=== PATIENT | female | born 1930 | race Caucasian/White ===

== ENCOUNTER → 2016-05-11 | Outpatient (CLI) | payer MEDICARE ==
[~2016-05-11] MED LIST: ARIC23TA PO; CARV12.5 PO; COUM5TAB PO; CYAN100025 PO; ENOX100P SQ; FERR1TAB36 PO; KEPP10002 PO; LEVE500 PO; LEVO-86 PO; LEVO.125 PO; MULT1TAB84 PO; NAME10TA PO; OMEGCAP PO; PROT40TA PO; PYRI1TAB14 PO; PYRI1TAB5 PO; REME15TA PO; STAR120T PO; VALS1TAB65 PO; VITA10003 PO; ZOCO10TA PO; ZOCO20TA PO
[2016-05-11 13:15] LABS: INTERNATIONAL NORMALIZED RATIO 1.3 RATIO; PROTHROMBIN TIME - PATIENT 14.5 SEC (9.8-11.6)
== END ==
LOC: PLAB 11:51
PROVIDERS: ATTEND Family Medicine
DX: I82.401 Acute embolism and thrombosis of unspecified deep veins of right lower extremity (principal)
CPT/HCPCS: 36415; 85610

== ENCOUNTER → 2016-05-27 | Outpatient (CLI) | payer MEDICARE ==
[2016-05-27 10:50] LABS: INTERNATIONAL NORMALIZED RATIO 1.3 RATIO; PROTHROMBIN TIME - PATIENT 14.1 SEC (9.8-11.6)
[2016-05-27 12:38] LABS: AUTOMATED NEUTROPHIL # 3.5 TH/MM3 (1.8-7.7); BASOPHIL # 0.1 TH/MM3 (0-0.2); BASOPHIL % 1.5 % (0.0-2.0); EOSINOPHIL # 0.7 TH/MM3 (0-0.4); EOSINOPHIL % 9.7 % (0.0-4.0); HEMATOCRIT 33.5 % (35.0-46.0); HEMO FLAGS DIFF FINAL; LYMPH % 33.9 % (9.0-44.0); LYMPHOCYTE # 2.5 TH/MM3 (1.0-4.8); MEAN CELL VOLUME 81.7 FL (80.0-100.0); MEAN CORPUSCULAR HGB CONC 31.8 % (32.0-36.0); MONO % 8.7 % (0.0-8.0); NEUT % 46.2 % (16.0-70.0); PLATELET COUNT 247 TH/MM3 (150-450); RED CELL DISTRIBUTION WIDTH 23.7 % (11.6-17.2); WHITE BLOOD COUNT 7.5 TH/MM3 (4.0-11.0)
[2016-05-27 13:12] LABS: ALKALINE PHOSPHATASE 48 U/L (45-117); ALT (GPT) 25 U/L (10-53); ANION GAP 7 MEQ/L (5-15); AST (GOT) 17 U/L (15-37); BICARBONATE 27.1 MEQ/L (21.0-32.0); BLOOD UREA NITROGEN 16 MG/DL (7-18); CHLORIDE 110 MEQ/L (98-107); FERRITIN 44 NG/ML (8-252); GLOMERULAR FILTRATION RATE 63 ML/MIN (>89); GLUCOSE,FASTING 135 MG/DL (74-99); SODIUM (NA) 144 MEQ/L (136-145); TOTAL BILIRUBIN ADULT 0.2 MG/DL (0.2-1.0); TRANSFERRIN IRON PROFILE 258 MG/DL (200-360)
[2016-05-27 16:32] LABS: HEMOGLOBIN A1a 1.1 %; HEMOGLOBIN A1b 1.8 %; HEMOGLOBIN Ao 85.2 %; HEMOGLOBIN LA1C 2.1 %
== END ==
LOC: PLAB 09:07
PROVIDERS: ATTEND Family Medicine
DX: I82.401 Acute embolism and thrombosis of unspecified deep veins of right lower extremity (principal)
CPT/HCPCS: 36415; 80053; 82728; 83036; 83540; 83550; 84443; 85025; 85610

== ENCOUNTER → 2016-07-16 | Outpatient (CLI) | payer MEDICARE ==
[2016-07-16 11:13] LABS: INTERNATIONAL NORMALIZED RATIO 1.5 RATIO; PROTHROMBIN TIME - PATIENT 17.1 SEC (9.8-11.6)
[2016-07-16 13:38] LABS: AUTOMATED NEUTROPHIL # 3.8 TH/MM3 (1.8-7.7); BASOPHIL % 0.5 % (0.0-2.0); EOSINOPHIL # 0.5 TH/MM3 (0-0.4); EOSINOPHIL % 6.7 % (0.0-4.0); HEMATOCRIT 36.7 % (35.0-46.0); HEMO FLAGS DIFF FINAL; LYMPH % 35.5 % (9.0-44.0); LYMPHOCYTE # 2.8 TH/MM3 (1.0-4.8); MEAN CELL VOLUME 82.3 FL (80.0-100.0); MEAN CORPUSCULAR HEMOGLOBIN 26.8 PG (27.0-34.0); MEAN CORPUSCULAR HGB CONC 32.6 % (32.0-36.0); MONO % 8.8 % (0.0-8.0); NEUT % 48.5 % (16.0-70.0); PLATELET COUNT 203 TH/MM3 (150-450); RED BLOOD COUNT 4.46 MIL/MM3 (4.00-5.30); RED CELL DISTRIBUTION WIDTH 17.6 % (11.6-17.2); WHITE BLOOD COUNT 7.8 TH/MM3 (4.0-11.0)
[2016-07-16 14:13] LABS: ALKALINE PHOSPHATASE 57 U/L (45-117); ALT (GPT) 28 U/L (10-53); ANION GAP 7 MEQ/L (5-15); AST (GOT) 16 U/L (15-37); BICARBONATE 29.6 MEQ/L (21.0-32.0); BLOOD UREA NITROGEN 16 MG/DL (7-18); CHLORIDE 106 MEQ/L (98-107); FERRITIN 21 NG/ML (8-252); GLOMERULAR FILTRATION RATE 59 ML/MIN (>89); POTASSIUM 3.6 MEQ/L (3.5-5.1); SODIUM (NA) 143 MEQ/L (136-145); TOTAL BILIRUBIN ADULT 0.2 MG/DL (0.2-1.0); TRANSFERRIN IRON PROFILE 237 MG/DL (200-360)
== END ==
LOC: PLAB 10:21
PROVIDERS: ATTEND Family Medicine
DX: I10 Essential (primary) hypertension (principal); E03.9 Hypothyroidism, unspecified; D50.9 Iron deficiency anemia, unspecified; I82.409 Acute embolism and thrombosis of unspecified deep veins of unspecified lower extremity; Z79.899 Other long term (current) drug therapy
CPT/HCPCS: 36415; 80053; 82728; 83540; 83550; 84443; 85025; 85610

== ENCOUNTER → 2016-10-21 | Outpatient (CLI) | payer MEDICARE ==
[~2016-10-21] MED LIST changes: -ENOX100P SQ; -LEVO-86 PO; -PYRI1TAB5 PO
[2016-10-21 10:48] LABS: PROTHROMBIN TIME - PATIENT 11.1 SEC (9.8-11.6)
[2016-10-21 12:26] LABS: AUTOMATED NEUTROPHIL # 4.2 TH/MM3 (1.8-7.7); BASOPHIL # 0.1 TH/MM3 (0-0.2); BASOPHIL % 0.7 % (0.0-2.0); EOSINOPHIL # 0.7 TH/MM3 (0-0.4); EOSINOPHIL % 8.3 % (0.0-4.0); HEMATOCRIT 35.5 % (35.0-46.0); HEMO FLAGS DIFF FINAL; LYMPH % 30.8 % (9.0-44.0); LYMPHOCYTE # 2.5 TH/MM3 (1.0-4.8); MEAN CELL VOLUME 84.7 FL (80.0-100.0); MEAN CORPUSCULAR HEMOGLOBIN 28.7 PG (27.0-34.0); MEAN CORPUSCULAR HGB CONC 33.9 % (32.0-36.0); MONO % 9.8 % (0.0-8.0); NEUT % 50.4 % (16.0-70.0); PLATELET COUNT 237 TH/MM3 (150-450); RED CELL DISTRIBUTION WIDTH 14.8 % (11.6-17.2); WHITE BLOOD COUNT 8.3 TH/MM3 (4.0-11.0)
[2016-10-21 12:50] LABS: ANION GAP 8 MEQ/L (5-15); AST (GOT) 21 U/L (15-37); BICARBONATE 27.9 MEQ/L (21.0-32.0); BLOOD UREA NITROGEN 13 MG/DL (7-18); CHLORIDE 101 MEQ/L (98-107); GLOMERULAR FILTRATION RATE 63 ML/MIN (>89); GLUCOSE,FASTING 146 MG/DL (74-99); POTASSIUM 3.9 MEQ/L (3.5-5.1); SODIUM (NA) 137 MEQ/L (136-145)
[2016-10-21 12:59] LABS: ALKALINE PHOSPHATASE 59 U/L (45-117); ALT (GPT) 31 U/L (10-53); FERRITIN 53 NG/ML (8-252); HDL CHOLESTEROL 57.7 MG/DL (40.0-60.0); LDL CHOLESTEROL 78 MG/DL (0-99); TOTAL BILIRUBIN ADULT 0.3 MG/DL (0.2-1.0); TRANSFERRIN IRON PROFILE 239 MG/DL (200-360)
[2016-10-21 16:43] LABS: HEMOGLOBIN A1a 1.2 %; HEMOGLOBIN A1b 2.2 %; HEMOGLOBIN Ao 82.1 %; HEMOGLOBIN LA1C 2.2 %; HEMOGLOBIN P3 4.1 %
== END ==
LOC: PLAB 09:23
PROVIDERS: ATTEND Family Medicine
DX: E78.2 Mixed hyperlipidemia (principal); E03.9 Hypothyroidism, unspecified; I10 Essential (primary) hypertension; E11.9 Type 2 diabetes mellitus without complications; I82.409 Acute embolism and thrombosis of unspecified deep veins of unspecified lower extremity; Z79.899 Other long term (current) drug therapy
CPT/HCPCS: 36415; 80053; 80061; 82728; 83036; 83540; 83550; 84443; 85025; 85610

== ENCOUNTER → 2016-12-16 | Outpatient (CLI) | payer MEDICARE ==
[2016-12-16 13:01] LABS: AUTOMATED NEUTROPHIL # 4.4 TH/MM3 (1.8-7.7); BASOPHIL % 0.5 % (0.0-2.0); EOSINOPHIL # 0.8 TH/MM3 (0-0.4); EOSINOPHIL % 8.7 % (0.0-4.0); HEMATOCRIT 39.7 % (35.0-46.0); HEMO FLAGS DIFF FINAL; LYMPH % 33.3 % (9.0-44.0); MEAN CELL VOLUME 84.8 FL (80.0-100.0); MEAN CORPUSCULAR HEMOGLOBIN 28.7 PG (27.0-34.0); MEAN CORPUSCULAR HGB CONC 33.9 % (32.0-36.0); MONO % 8.2 % (0.0-8.0); NEUT % 49.3 % (16.0-70.0); PLATELET COUNT 211 TH/MM3 (150-450); RED BLOOD COUNT 4.69 MIL/MM3 (4.00-5.30); RED CELL DISTRIBUTION WIDTH 13.5 % (11.6-17.2); WHITE BLOOD COUNT 8.9 TH/MM3 (4.0-11.0)
[2016-12-16 13:36] LABS: FERRITIN 19 NG/ML (8-252); TRANSFERRIN IRON PROFILE 230 MG/DL (200-360)
[2016-12-16 16:55] LABS: HEMOGLOBIN A1a 1.2 %; HEMOGLOBIN A1b 2.4 %; HEMOGLOBIN Ao 81.1 %; HEMOGLOBIN LA1C 2.3 %; HEMOGLOBIN P3 4.3 %
== END ==
LOC: PLAB 08:39
PROVIDERS: ATTEND Family Medicine
DX: E03.9 Hypothyroidism, unspecified (principal); E11.65 Type 2 diabetes mellitus with hyperglycemia; D50.9 Iron deficiency anemia, unspecified
CPT/HCPCS: 36415; 82728; 83036; 83540; 83550; 84443; 85025

== ENCOUNTER → 2017-02-24 | Outpatient (CLI) | payer MEDICARE | LOC: PLAB 11:30 | PROVIDERS: ATTEND Family Medicine | DX: E03.9 Hypothyroidism, unspecified (principal) | CPT/HCPCS: 36415; 84443 ==

== ENCOUNTER → 2017-03-28 | Outpatient (CLI) | payer MEDICARE ==
[~2017-03-28] MED LIST changes: -PYRI1TAB14 PO; +PYRI50 PO
[2017-03-28 13:37] LABS: AUTOMATED NEUTROPHIL # 4.2 TH/MM3 (1.8-7.7); BASOPHIL # 0.1 TH/MM3 (0-0.2); BASOPHIL % 0.8 % (0.0-2.0); EOSINOPHIL # 0.7 TH/MM3 (0-0.4); EOSINOPHIL % 7.1 % (0.0-4.0); HEMATOCRIT 39.5 % (35.0-46.0); HEMO FLAGS DIFF FINAL; LYMPH % 37.9 % (9.0-44.0); LYMPHOCYTE # 3.6 TH/MM3 (1.0-4.8); MEAN CORPUSCULAR HEMOGLOBIN 27.1 PG (27.0-34.0); MEAN CORPUSCULAR HGB CONC 32.6 % (32.0-36.0); MONO % 9.5 % (0.0-8.0); NEUT % 44.7 % (16.0-70.0); PLATELET COUNT 226 TH/MM3 (150-450); RED BLOOD COUNT 4.76 MIL/MM3 (4.00-5.30); RED CELL DISTRIBUTION WIDTH 14.8 % (11.6-17.2); WHITE BLOOD COUNT 9.4 TH/MM3 (4.0-11.0)
[2017-03-28 14:04] LABS: ANION GAP 8 MEQ/L (5-15); AST (GOT) 21 U/L (15-37); BLOOD UREA NITROGEN 19 MG/DL (7-18); CHLORIDE 107 MEQ/L (98-107); GLOMERULAR FILTRATION RATE 57 ML/MIN (>89); GLUCOSE,FASTING 180 MG/DL (74-99); POTASSIUM 3.7 MEQ/L (3.5-5.1); SODIUM (NA) 141 MEQ/L (136-145)
[2017-03-28 14:15] LABS: ALKALINE PHOSPHATASE 70 U/L (45-117); ALT (GPT) 34 U/L (10-53); FERRITIN 14 NG/ML (8-252); LDL CHOLESTEROL 57 MG/DL (0-99); TOTAL BILIRUBIN ADULT 0.3 MG/DL (0.2-1.0); TRANSFERRIN IRON PROFILE 256 MG/DL (200-360)
[2017-03-28 17:18] LABS: HEMOGLOBIN A1a 1.3 %; HEMOGLOBIN A1b 1.2 %; HEMOGLOBIN Ao 79.6 %; HEMOGLOBIN F 1.4 %; HEMOGLOBIN LA1C 2.8 %; HEMOGLOBIN P3 4.7 %
== END ==
LOC: PLAB 08:37
PROVIDERS: ATTEND Family Medicine
DX: E11.65 Type 2 diabetes mellitus with hyperglycemia (principal); I10 Essential (primary) hypertension; E78.2 Mixed hyperlipidemia; E03.9 Hypothyroidism, unspecified; D50.9 Iron deficiency anemia, unspecified
CPT/HCPCS: 36415; 80053; 80061; 82728; 83036; 83540; 83550; 84443; 85025

== ENCOUNTER → 2017-09-13 | Outpatient (CLI) | payer MEDICARE ==
[~2017-09-13] MED LIST changes: -FERR1TAB36 PO; -MULT1TAB84 PO; -VITA10003 PO
[2017-09-13 10:42] LABS: AUTOMATED NEUTROPHIL # 3.7 TH/MM3 (1.8-7.7); BASOPHIL % 0.4 % (0.0-2.0); EOSINOPHIL # 0.7 TH/MM3 (0-0.4); EOSINOPHIL % 8.7 % (0.0-4.0); HEMATOCRIT 38.1 % (35.0-46.0); HEMOGLOBIN 13.1 GM/DL (11.6-15.3); LYMPHOCYTE # 3.1 TH/MM3 (1.0-4.8); MEAN CELL VOLUME 84.9 FL (80.0-100.0); MEAN CORPUSCULAR HEMOGLOBIN 29.2 PG (27.0-34.0); MEAN CORPUSCULAR HGB CONC 34.3 % (32.0-36.0); MEAN PLATELET VOLUME 8.1 FL (7.0-11.0); MONO % 9.4 % (0.0-8.0); MONOCYTE # 0.8 TH/MM3 (0-0.9); NEUT % 44.5 % (16.0-70.0); PLATELET COUNT 217 TH/MM3 (150-450); RED BLOOD COUNT 4.49 MIL/MM3 (4.00-5.30); RED CELL DISTRIBUTION WIDTH 15.1 % (11.6-17.2); RETIC # 50.8 MIL/L (20.0-150.0); RETIC % 1.1 % (0.4-3.0); WHITE BLOOD COUNT 8.3 TH/MM3 (4.0-11.0)
[2017-09-13 11:02] LABS: ALBUMIN 3.5 GM/DL (3.4-5.0); AST (GOT) 20 U/L (15-37); BLOOD UREA NITROGEN 12 MG/DL (7-18); CALCIUM 8.7 MG/DL (8.5-10.1); CHLORIDE 105 MEQ/L (98-107); CREATININE 0.87 MG/DL (0.50-1.00); GLOMERULAR FILTRATION RATE 62 ML/MIN (>89); GLUCOSE,FASTING 108 MG/DL (74-99); SODIUM (NA) 141 MEQ/L (136-145)
[2017-09-13 11:13] LABS: % SATURATION IRON PROFILE 22.6 % (20-50); ALKALINE PHOSPHATASE 59 U/L (45-117); ALT (GPT) 27 U/L (10-53); FERRITIN 54 NG/ML (8-252); IRON (FE) 75 MCG/DL (50-170); TOTAL BILIRUBIN ADULT 0.3 MG/DL (0.2-1.0); TOTAL IRON BINDING CAPACITY 332 MCG/DL (250-450); TOTAL PROTEIN 7.2 GM/DL (6.4-8.2)
[2017-09-13 16:17] LABS: HEMOGLOBIN A1C 7.5 % (4.3-6.0)
== END ==
LOC: PLAB 08:23
PROVIDERS: ATTEND Family Medicine
DX: E11.65 Type 2 diabetes mellitus with hyperglycemia (principal); E03.9 Hypothyroidism, unspecified; D50.9 Iron deficiency anemia, unspecified
CPT/HCPCS: 36415; 80053; 82728; 83036; 83540; 83550; 84443; 85025; 85044

== ENCOUNTER 2017-10-25 00:43 | Inpatient (IN) | payer MEDICARE ==
[~2017-10-25] VITALS: Ht 167.6 cm; Wt 81.1 kg
[2017-10-25] VITALS (11 sets, daily range): BP systolic 134–180; BP diastolic 60–80; PULSE 68–101; RESP 18–20; TEMP 96.1–97.4; O2SAT 94–97
[2017-10-25] MEDS ORDERED: VALS1TAB65 PO (01:20)
[2017-10-25] MEDS ORDERED: CARV12.5 PO (01:20)
[2017-10-25] MEDS ORDERED: REME15TA PO (01:20)
[2017-10-25] MEDS ORDERED: SITA1TAB2 PO (01:20)
[2017-10-25] MEDS ORDERED: ARIC23TA PO (01:20)
[2017-10-25] MEDS ORDERED: LEVE500 (01:20)
[2017-10-25] MEDS ORDERED: LEVO.15 PO (01:20)
[2017-10-25] MEDS ORDERED: PANT40TA3 PO (01:20)
[2017-10-25] MEDS ORDERED: METHE500 PO (01:20)
[2017-10-25] MEDS ORDERED: ASPI-516 CHEW (01:20)
[2017-10-25] MEDS ORDERED: SIMV20TA PO (01:20)
[2017-10-25] MEDS ORDERED: NAME10TA PO (01:20)
[2017-10-25] MEDS ORDERED: SODIUM CHLORIDE 0.9% FLUSH 10 ML FLUSH IVF PRN (01:30)
--- NOTE | 2017-10-25 01:54 | PD ---
HPI Chief Complaint: GI Complaint Time Seen by Provider: 01:29 Travel History International Travel<30 days: No Contact w/Intl Traveler<30days: No Traveled to known affect area: No History of Present Illness HPI 87-year-old female presents to the emergency department by private transportation for evaluation of nausea vomiting and diarrhea. Symptoms began after eating dinner. Upon arrival to the emergency department symptoms are now completely resolved. Patient had multiple episodes of nonbloody nonbilious emesis with watery diarrhea. Patient reportedly ate the same foods as her spouse but he is not asymptomatic no known dietary indiscretion well water ingestion or foreign travel. At this time patient states he feels completely back to normal she has no nausea she has had no further vomiting she has no crampy abdominal pain and she has had no watery diarrhea since arrival to the emergency department. Patient states she feels well denies having any chest pain palpitations shortness of breath sweats diaphoresis no syncope or syncope. Daughter states that when symptoms began this evening she had numerous episodes of stomach contents and watery emesis as well as watery diarrhea. No hematemesis no coffee-ground emesis no melena hematochezia no recent antibiotic use. Symptoms seem to have completely resolved at this time the daughter was quite concerned about patient becoming dehydrated. Patient and family unable to identify specific exacerbating or alleviating factors. 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 Patient also has history of pacemaker defibrillator denies any chest pain shortness of breath. PFSH Past Medical History Narrative Medical Atrial fibrillation dyslipidemia CAD CVA subarachnoid hemorrhage diabetes DVT pacemaker hypothyroidism seizure memory loss; no tobacco use; nursing notes reviewed Hx Anticoagulant Therapy: No Asthma: No Atrial Fibrillation: Yes Autoimmune Disease: No Blood Disorders: No Anxiety: No Depression: Yes Heart Rhythm Problems: Yes (A-FIB) Cancer: No Cardiovascular Problems: Yes High Cholesterol: Yes Chemotherapy: No Chest Pain: No Congestive Heart Failure: No COPD: No Cerebrovascular Accident: Yes ([facility] POST NEURO SURGERY 06/17) Diabetes: Yes Patient Takes Glucophage: No Diminished Hearing: No Deep Vein Thrombosis: Yes Gastrointestinal Disorders: No GERD: No Glaucoma: No Genitourinary: No Headaches: No Hepatitis: No Hiatal Hernia: No Heparin Induced Thrombocytopen: No Hypertension: Yes Immune Disorder: No Kidney Stones: No 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) Psychiatric: Yes Reproductive: No Respiratory: No Migraines: No Myocardial Infarction: No Radiation Therapy: No Renal Failure: No Sickle Cell Disease: No Sleep Apnea: No Thyroid Disease: Yes Ulcer: No Tetanus Vaccination: < 5 Years Influenza Vaccination: Yes Menopausal: Yes Past Surgical History Abdominal Surgery: Yes (MULTIPLE) AICD: Yes Appendectomy: No Arteriovenous Shunt: No Cardiac Surgery: No Cholecystectomy: No Ear Surgery: No Endocrine Surgery: No Eye Surgery: No Genitourinary Surgery: No Gynecologic Surgery: Yes (HYSTERECTOMY) Hysterectomy: Yes Insulin Pump: No Joint Replacement: No Neurologic Surgery: Yes (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) Oral Surgery: No Pacemaker: Yes (PACING AICD) Thoracic Surgery: No Other Surgery: Yes Social History Alcohol Use: No Tobacco Use: No Substance Use: No Allergies-Medications (Allergen,Severity, Reaction): Coded Allergies: diatrizoate meglumine (Verified Allergy, Intermediate, 10/25/17) gadobenic acid (Verified Allergy, Intermediate, 10/25/17) gadodiamide (Verified Allergy, Intermediate, 10/25/17) gadoteridol (Verified Allergy, Intermediate, 10/25/17) iodixanol (Verified Allergy, Intermediate, 10/25/17) iohexol (Verified Allergy, Intermediate, 10/25/17) penicillin G (Verified Allergy, Intermediate, 10/25/17) Reported Meds & Prescriptions Reported Meds & Active Scripts Active Reported Valsartan 160 Mg Tab 160 Mg PO DAILY Synthroid (Levothyroxine Sodium) 150 Mcg Tab 150 Mcg PO DAILY Simvastatin 20 Mg Tab 20 Mg PO DAILY Remeron (Mirtazapine) 15 Mg Tab 7.5 Mg PO HS Pantoprazole (Pantoprazole Sodium) 40 Mg Tab 40 Mg PO DAILY Namenda (Memantine) 10 Mg Tab 10 Mg PO DAILY Methenamine Mandelate 500 Mg Tab 500 Mg PO QID Keppra (Levetiracetam) 500 Mg Tab 500 Mg BID Januvia (Sitagliptin Phosphate) 100 Mg Tab 100 Mg PO DAILY Coreg (Carvedilol) 12.5 Mg Tab 12.5 Mg PO BID Aspirin 81 Mg Chew 162 Mg CHEW DAILY Aricept (Donepezil) 23 Mg Tab 10 Mg PO HS Do not split, crushed or chewed. Review of Systems Except as stated in HPI: all other systems reviewed are Neg General / Constitutional: No: Fever, Chills Eyes: No: Visual changes HENT: No: Congestion Cardiovascular: No: Chest Pain or Discomfort, Palpitations, Diaphoresis, Syncope Respiratory: No: Shortness of Breath Gastrointestinal: Positive: Nausea, Vomiting, Diarrhea, Abdominal Pain ( cramping w/ vomiting or diarrhea), No: Hematemesis, Hematochezia Genitourinary: No: Urgency, Frequency, Dysuria, Nocturia, Decreased Urinary Output Musculoskeletal: No: Myalgias, Arthralgias Skin: No Rash Neurologic: No: Weakness, Dizziness, Syncope Psychiatric: No: Anxiety Hematologic/Lymphatic: No: Easy Bruising Physical Exam Narrative GENERAL: Well-developed well-nourished elderly female in no acute distress or respiratory distress SKIN: Warm and dry. HEAD: Normocephalic. EYES: No scleral icterus. No injection or drainage. NECK: Supple, trachea midline. No JVD or lymphadenopathy. CARDIOVASCULAR: Regular rate and rhythm without murmurs, gallops, or rubs. RESPIRATORY: Breath sounds equal bilaterally. No accessory muscle use. GASTROINTESTINAL: Abdomen soft, non-tender, nondistended. No guarding no rebound no palpable pulsatile mass MUSCULOSKELETAL: No cyanosis, or edema. BACK: Nontender without obvious deformity. No CVA tenderness. Data Data Last Documented VS Vital Signs Date Time Temp Pulse Resp B/P (MAP) Pulse Ox O2 Delivery O2 Flow Rate FiO2 10/25/17 02:15 150/74 (99) 10/25/17 01:54 18 97 Room Air 10/25/17 00:49 97.4 101 Orders Orders Complete Blood Count With Diff (10/25/17 01:29) Comprehensive Metabolic Panel (10/25/17 01:29) Urinalysis - C+S If Indicated (10/25/17 01:29) Lipase (10/25/17 01:29) Abdomen, Flat & Upright (10/25/17 ) Iv Access Insert/Monitor (10/25/17 01:29) Ecg Monitoring (10/25/17 01:29) Oximetry (10/25/17 01:29) Sodium Chloride 0.9% Flush (Ns Flush) (10/25/17 01:30) Electrocardiogram (10/25/17 ) Urine Culture (10/25/17 01:44) Blood Culture (10/25/17 02:16) Lactic Acid (10/25/17 02:16) Sodium Chlorid 0.9% 500 Ml Inj (Ns 500 M (10/25/17 02:30) Ceftriaxone Inj (Rocephin Inj) (10/25/17 02:45) Admit Order (Ed Use Only) (10/25/17 ) Weather Clerk / Telemetry [id number] (10/25/17 03:20) Diet Heart Healthy (10/25/17 Breakfast) Activity Oob With Assistance (10/25/17 03:20) Notify Dr: Other (10/25/17 03:20) Labs Laboratory Tests Test 10/25/17 01:44 10/25/17 02:23 White Blood Count 15.9 TH/MM3 Red Blood Count 5.11 MIL/MM3 Hemoglobin 14.9 GM/DL Hematocrit 44.3 % Mean Corpuscular Volume 86.6 FL Mean Corpuscular Hemoglobin 29.1 PG Mean Corpuscular Hemoglobin Concent 33.7 % Red Cell Distribution Width 13.9 % Platelet Count 212 TH/MM3 Mean Platelet Volume 8.1 FL Neutrophils (%) (Auto) 78.0 % Lymphocytes (%) (Auto) 12.1 % Monocytes (%) (Auto) 4.8 % Eosinophils (%) (Auto) 3.0 % Basophils (%) (Auto) 2.1 % Neutrophils # (Auto) 12.4 TH/MM3 Lymphocytes # (Auto) 1.9 TH/MM3 Monocytes # (Auto) 0.8 TH/MM3 Eosinophils # (Auto) 0.5 TH/MM3 Basophils # (Auto) 0.3 TH/MM3 CBC Comment DIFF FINAL Differential Comment Urine Color YELLOW Urine Turbidity SL CLOUDY Urine pH 6.0 Urine Specific [place] 1.025 Urine Protein 100 mg/dL Urine Glucose (UA) 250 mg/dL Urine Ketones 15 mg/dL Urine Occult Blood SMALL Urine Nitrite POS Urine Bilirubin NEG Urine Urobilinogen 0.2 MG/DL Urine Leukocyte Esterase NEG Urine RBC 3-5 /hpf Urine WBC 3-5 /hpf Urine Squamous Epithelial Cells 0-5 /hpf Urine Bacteria MANY /hpf Microscopic Urinalysis Comment CULTURE INDICATED Blood Urea Nitrogen 14 MG/DL Creatinine 0.91 MG/DL Random Glucose 245 MG/DL Total Protein 7.6 GM/DL Albumin 3.5 GM/DL Calcium Level 8.7 MG/DL Alkaline Phosphatase 60 U/L Aspartate Amino Transf (AST/SGOT) 32 U/L Alanine Aminotransferase (ALT/SGPT) 32 U/L Total Bilirubin 0.4 MG/DL Sodium Level 135 MEQ/L Potassium Level 4.1 MEQ/L Chloride Level 101 MEQ/L Carbon Dioxide Level 23.5 MEQ/L Anion Gap 11 MEQ/L Estimat Glomerular Filtration Rate 59 ML/MIN Lipase 205 U/L Lactic Acid Level 2.5 mmol/L [facility] Medical Decision Making Medical Screen Exam Complete: Yes Emergency Medical Condition: Yes Medical Record Reviewed: Yes Interpretation(s) EKG: normal sinus rhythm rate 99, first degree av block left bundle branch block lactic acid: 2.5, elevated Last Impressions Abdomen X-Ray 10/25/17 0000 Signed Impressions: CONCLUSION: Negative examination. Pacemaker overlies the heart CBC & BMP Diagram 10/25/17 01:44 Total Protein 7.6, Albumin 3.5, Calcium Level 8.7, Alkaline Phosphatase 60, Aspartate Amino Transf (AST/SGOT) 32, Alanine Aminotransferase (ALT/SGPT) 32, Total Bilirubin 0.4 Vital Signs Date Time Temp Pulse Resp B/P (MAP) Pulse Ox O2 Delivery O2 Flow Rate FiO2 10/25/17 02:15 150/74 (99) 10/25/17 01:54 18 97 Room Air 10/25/17 01:10 18 10/25/17 00:49 97.4 101 20 179/80 (113) 95 Differential Diagnosis Gastroenteritis, electrolyte disturbance, arrhythmia, UTI, dehydration, sepsis, Sirs; also to consider but unlikely ischemic colitis Narrative Course IV access obtained specimens collected and sent for resulting patient placed on filters assembler with continuous pulse oximetry; patient resting comfortably denies any nausea at this time does not want any Zofran for nausea or vomiting denies any abdominal pain abdomen is soft nontender without guarding or rebound and no diarrhea. No recent antibiotic use. Possible foodborne illness. White cell count is elevated at 15,000 can reflect infectious versus hydration/ dehydration status versus stress demargination will administer fluid bolus 1 Chemistries grossly within normal range however abnormal urinalysis positive nitrites and many bacteria with recommendation for culture at this point time patient does meet sepsis criteria and with elevated white cell count elevated heart rate upon presentation and source of infection as such blood cultures obtained along with a lactic acid and patient administered Rocephin 1 g IV piggyback with IV fluid bolus Lactic acid has resulted elevated at 2.5 call placed to patient's primary care provider Dr. Munoz will admit patient to his service for ongoing antibiotic management; patient and family informed of plan for admission and are agreeable. Critical Care Narrative Aggregate critical care time was 35 minutes. Time to perform other separately billable procedures was not included in the critical care time. My time did not include minutes spent treating any other patients simultaneously or on activities that did not directly contribute to the patient's treatment. The services I provided to this patient were to treat and/or prevent clinically significant deterioration that could result in: Severe sepsis, septic shock, I provided critical care services requiring my management, as noted below: Chart data review, documentation time, medication orders and management, vital sign assessments/reviewing monitor data, ordering and reviewing lab tests, ordering and interpreting/reviewing x-rays and diagnostic studies, care of the patient and discussion of the patient with the admitting physicians. Sepsis Criteria SIRS Criteria (2 or more): Heart rate over 90, WBC > 02661, < 4000 or > 10% bands Physician Communication Physician Communication discussed with DR Munoz--admit to his service --will write orders Diagnosis Primary Impression: Sepsis Additional Impressions: UTI (urinary tract infection) Gastroenteritis Admitting Information Admitting Physician Requests: Admit Rima Briones MD Oct 25, 2017 01:54
[2017-10-25 02:00] LABS: BILIRUBIN, URINE NEG (NEG); BLOOD, URINE SMALL (NEG); GLUCOSE,URINE 250 mg/dL (NEG); KETONE, URINE 15 mg/dL (NEG); NITRITE,URINE POS (NEG); URINE COLOR YELLOW (YELLW/STRAW); URINE LEUKOCYTE ESTERASE NEG (NEG)
[2017-10-25 02:01] LABS: AUTOMATED NEUTROPHIL # 12.4 TH/MM3 (1.8-7.7); BASOPHIL # 0.3 TH/MM3 (0-0.2); BASOPHIL % 2.1 % (0.0-2.0); EOSINOPHIL # 0.5 TH/MM3 (0-0.4); HEMATOCRIT 44.3 % (35.0-46.0); HEMOGLOBIN 14.9 GM/DL (11.6-15.3); LYMPH % 12.1 % (9.0-44.0); LYMPHOCYTE # 1.9 TH/MM3 (1.0-4.8); MEAN CELL VOLUME 86.6 FL (80.0-100.0); MEAN CORPUSCULAR HEMOGLOBIN 29.1 PG (27.0-34.0); MEAN CORPUSCULAR HGB CONC 33.7 % (32.0-36.0); MEAN PLATELET VOLUME 8.1 FL (7.0-11.0); MONO % 4.8 % (0.0-8.0); MONOCYTE # 0.8 TH/MM3 (0-0.9); PLATELET COUNT 212 TH/MM3 (150-450); RED BLOOD COUNT 5.11 MIL/MM3 (4.00-5.30); RED CELL DISTRIBUTION WIDTH 13.9 % (11.6-17.2); WHITE BLOOD COUNT 15.9 TH/MM3 (4.0-11.0)
[2017-10-25 02:08] LABS: BACTERIA, URINE MANY /hpf; SQUAMOUS EPITHELIAL CELL URINE 0-5 /hpf (0-5)
[2017-10-25 02:09] LABS: CHLORIDE 101 MEQ/L (98-107); SODIUM (NA) 135 MEQ/L (136-145)
[2017-10-25 02:13] LABS: ALBUMIN 3.5 GM/DL (3.4-5.0); BICARBONATE 23.5 MEQ/L (21.0-32.0); BLOOD UREA NITROGEN 14 MG/DL (7-18); CALCIUM 8.7 MG/DL (8.5-10.1); GLUCOSE,RANDOM 245 MG/DL (74-106)
[2017-10-25 02:16] LABS: ALT (GPT) 32 U/L (10-53); AST (GOT) 32 U/L (15-37); CREATININE 0.91 MG/DL (0.50-1.00); GLOMERULAR FILTRATION RATE 59 ML/MIN (>89)
[2017-10-25 02:18] LABS: TOTAL BILIRUBIN ADULT 0.4 MG/DL (0.2-1.0); TOTAL PROTEIN 7.6 GM/DL (6.4-8.2)
[2017-10-25 02:19] LABS: ALKALINE PHOSPHATASE 60 U/L (45-117)
--- NOTE | 2017-10-25 02:26 | RADRPT ---
EXAM DATE: 10/25/2017 2:12 AM EDT AGE/SEX: 87 years / Female INDICATIONS: Abdomen pain, nausea, and vomiting. CLINICAL DATA: This is the patient's initial encounter. Patient reports that signs and symptoms have been present for 1 day and indicates a pain score of 7/10. MEDICAL/SURGICAL HISTORY: . No pertinent history. Hysterectomy. COMPARISON: No prior exams available for comparison. FINDINGS: Supine and upright views of the abdomen were performed. The abdominal bowel gas pattern is normal. No air-fluid levels are seen. No abnormal masses, calcifications, or organomegaly is seen. The visualiz ed lower lungs are clear. No evidence of free intraperitoneal gas. The osseous structures are unremar kable. IVC filter in place CONCLUSION: Negative examination. Pacemaker overlies the heart Electronically signed by: Alexander Cunha MD 10/25/2017 2:25 AM EDT
[2017-10-25] MEDS ORDERED: SODIUM CHLORID 0.9% 500 ML INJ 500 ML IV ONE (02:30)
[2017-10-25] MEDS ORDERED: cefTRIAXone INJ 1,000 MG in SODIUM CHLORIDE 0.9% INJ 100 ML IV ONE (02:45)
[2017-10-25] MEDS ORDERED: SODIUM CHLORIDE 0.9% FLUSH 10 ML FLUSH IV FLUSH PRN (03:30)
[2017-10-25] MEDS ORDERED: MAGNESIUM HYDROXIDE SUSP 30 ML CUP PO PRN (03:30)
[2017-10-25] MEDS ORDERED: NALOXONE HCL 0.4 MG/ML AMP IV PUSH PRN (03:30)
[2017-10-25] MEDS ORDERED: SENNOSIDES 8.6 MG TAB PO PRN (03:30)
[2017-10-25] MEDS ORDERED: ACETAMINOPHEN 325 MG TAB PO PRN (03:30)
[2017-10-25] MEDS ORDERED: BISACODYL 10 MG SUPP RECTAL PRN (03:30)
[2017-10-25] MEDS ORDERED: PILL SPLITTER OTHER PRN (03:45)
[2017-10-25] MEDS ORDERED: GLUCAGON 1 MG/ML VIAL OTHER PRN (03:45)
[2017-10-25] MEDS ORDERED: DEXTROSE 50% IN WATER 50 ML VIAL(D50) IV PUSH PRN (03:45)
[2017-10-25] MEDS ORDERED: ONDANSETRON ODT 4 MG TAB PO PRN (03:45)
[2017-10-25] MEDS: SODIUM CHLOR 0.45% 1000 ML INJ 1,000 ML IV SCH ×2 (03:53→16:24)
[2017-10-25] MEDS: LEVOTHYROXINE SODIUM 150 MCG TAB PO SCH (05:43)
[2017-10-25] MEDS: GLIMEPIRIDE 2 MG TAB PO SCH ×2 (05:43→09:50)
[2017-10-25] MEDS: INSULIN ASPART SUPPLEMENTAL SCALE SQ SCH ×4 (08:00→21:48)
[2017-10-25] MEDS: SODIUM CHLORIDE 0.9% FLUSH 10 ML FLUSH IV FLUSH SCH ×2 (09:00→21:43)
--- NOTE | 2017-10-25 09:33 | MH ---
cc: Mauricio Munoz MD DATE OF ADMISSION: 10/25/2017 ADMITTING DIAGNOSIS: Urinary tract infection, sepsis. HISTORY OF PRESENT ILLNESS: This 87-year-old white female, well known to the undersigned physician, was in her usual state of health until the evening prior to admission when she had sudden onset of nausea and vomiting. She had multiple episodes of emesis. She denied any abdominal pain, fever, chills, dysuria, hematuria, or flank pain. She does have chronic urinary incontinence, which was unchanged. The patient could not keep down solids and liquids at which point her family brought her to this facility for further evaluation and treatment. PAST MEDICAL HISTORY: Extensive, including a history of type 2 diabetes, hypertension, hyperlipidemia, hypothyroidism, peripheral vascular disease, history of a cerebral aneurysm with attempted coiling procedure, which caused a rupture of the aneurysm and an intracranial hemorrhage. The patient had a prolonged hospitalization, and recovery in 2003. 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 She has been on long-term anticonvulsant therapy. She has a history of frequent urinary tract infections, but they have not occurred in almost 2 years. She has a history of hemorrhoids. The patient is status post hysterectomy, status post pacemaker placement, status post bilateral cataract removal with lens implants. ALLERGIES: SHE HAS ALLERGIES TO PENICILLIN AND IV CONTRAST. FAMILY HISTORY: Noncontributory. SOCIAL HISTORY: She is . She is retired. She lives with her . She has a caregiver during the day. She does not smoke nor does she drink alcohol. IMMUNIZATION HISTORY: The patient had pneumococcal vaccination in 01/2006 and influenza vaccination on 02/06/2017. REVIEW OF SYSTEMS: The patient denies any chest pain, shortness of breath, palpitations, lightheadedness, dizziness. She has had no cough or sputum production. She denies any fever, chills, night sweats, unexplained weight loss, unexplained weight gain, heat or cold intolerance, alopecia, dry skin, brittle nails, rashes, diarrhea, constipation, melena, hematochezia, numbness or tingling in the hands or feet, visual changes or lateralizing neurologic deficit. She does have some short-term memory deficits and some mild cognitive deficits consistent with her dementia. She has had no depression or anxiety. CURRENT MEDICATIONS: 1. Januvia 100 mg daily. 2. Methenamine Mandelate 500 mg twice daily. 3. Actos 15 mg daily. 4. Pantoprazole 40 mg daily. 5. Ferrous sulfate 325 mg daily. 6. Glimepiride 2 mg twice daily. 7. Mirtazapine 7.5 mg at bedtime. 8. Synthroid 150 mcg 1 tablet daily except 1/2 tablet on Mondays and . 9. Simvastatin 10 mg daily. 10. D-Mannose 500 mg 1 capsule twice daily. 11. Valsartan 160 mg daily. 12. Carvedilol 12.5 mg 2 tablets in the morning and 1 tablet in the evening. 13. Keppra 500 mg 2 tablets in the morning, 1 tablet midday and 2 tablets at bedtime. 14. Donepezil 10 mg at bedtime. 15. Vitamin D 1000 international units daily. 16. Namenda 10 mg twice daily. 17. Vitamin C 1000 mg daily. 18. Vitamin B12 1000 mcg daily. 19. Citrucel 500 mg tablets 2 tablets twice a day with 8 ounces of liquid. PHYSICAL EXAMINATION: Upon arrival to the emergency department, patient's blood pressure was 179/80, heart rate 101, respirations 20, temperature 97.4 degrees Fahrenheit, oxygen saturation on room air was 95%. At the current time, blood pressure is 144/65 with a heart rate of 68, respirations 18, temperature 96.6 degrees Fahrenheit. GENERAL: This is an obese, elderly, white female lying in bed in no acute distress. HEENT: Pupils are equal, round, reactive to light. Extraocular wounds are intact. Sclerae are anicteric. Conjunctivae pink. Bilateral lens implants in place. Mouth and throat revealed moist mucous membranes with no erythema or exudates. Dentition is good. There is extensive bridge work in the upper dentition. NECK: Supple without lymphadenopathy, JVD, bruits or thyromegaly. CARDIOVASCULAR: Regular rate and rhythm without murmurs, rubs or gallops. LUNGS: Clear to auscultation without wheezing, rhonchi or rales. ABDOMEN: Obese, moderately distended, soft, nontender with active bowel sounds. No masses palpable. No HSM. No CVAT. GENITOURINARY AND RECTAL: Deferred. LOWER EXTREMITIES: Reveal no appreciable edema. No calf tenderness. No Homans sign. 2+ pulses. NEUROLOGIC: The patient is awake, alert, oriented to person, place, but not to time. Speech is intact. Cranial nerves intact. She has no lateralizing deficits. Mood, good. Affect, appropriate. LABORATORY DATA: The white blood cell count 15.9, hemoglobin 14.9, hematocrit 44.3, platelet count was 212,000. White blood count differential showed 78 polys, 12.1 lymphocytes, and 4.8 monocytes. The comprehensive metabolic profile was significant only for a glucose of 245. Lactic acid was elevated at 2.5. Urinalysis revealed a specific gravity 1.025, pH 6.0, 100 mg percent protein, 250 mg percent, 15 ketones, small occult blood, positive for nitrites, 3-5 RBCs, 3-5 WBCs, but many bacteria. Culture is pending. Blood cultures are pending. Abdominal x-ray revealed pacemaker overlying the heart otherwise negative examination. IMPRESSION AND PLAN: 1. This 87-year-old white female presented with nausea and vomiting. Urinalysis is suspicious for urinary tract infection. She meets criteria for sepsis based on the elevated lactic acid and the tachycardia. She has received IV fluids in the emergency department and her heart rate has come down. Repeat lactic acid done this morning was 2.0, which is within normal limits. She will be admitted to a medical/surgical floor with telemetry. She will be given IV fluids, IV Rocephin and will adjust antibiotic coverage pending results of the urine culture. The patient was placed on a clear liquid diet due to nausea and vomiting. We will advance diet as tolerated. Provide antiemetics as needed. 2. Hypertension. Continue the patient with usual antihypertensive medications. Cover with additional medication if needed. 3. History of type 2 diabetes. The patient will continue with the usual oral hypoglycemic agents. We will check bedside glucose before meals and at bedtime and cover with a sliding scale and NovoLog insulin as needed. 4. History of dementia. Continue with the donepezil and Namenda. Mental status is stable. 5. Hyperlipidemia. The patient will continue with statin therapy. 6. Hypothyroidism. Continue with current dosage of Synthroid. Patient is having TSH monitored on an outpatient basis. 7. History of gastroesophageal reflux disease. Continue with pantoprazole 40 mg daily. 8. Deep venous thrombosis prophylaxis. The patient will have sequential compression devices in the lower extremities. She has a history of an intracranial hemorrhage, therefore, will avoid anticoagulants at this point. We will mobilize the patient as soon as possible to reduce risk of DVT. Mauricio Munoz MD JREzio/BRYNN , 08:49 AM , 09:32 AM
[2017-10-25] MEDS: MEMANTINE HCL 10 MG TAB PO SCH (09:49)
[2017-10-25] MEDS: PANTOPRAZOLE SOD 40 MG DELAYED RELEASE TAB PO SCH (09:49)
[2017-10-25] MEDS: PIOGLITAZONE HCL 15 MG TAB PO SCH (09:49)
[2017-10-25] MEDS: PRAVASTATIN SOD 40 MG TAB PO SCH (09:49)
[2017-10-25] MEDS: FERROUS SULFATE 325 MG (65 MG ELEMENTAL IRON) TAB PO SCH (09:50)
[2017-10-25] MEDS: levETIRAcetam 500 MG TAB PO SCH ×3 (09:50→21:40)
[2017-10-25] MEDS: CARVEDILOL 12.5 MG TAB PO SCH ×2 (09:50→21:40)
[2017-10-25] MEDS: ASPIRIN 81 MG CHEW TAB CHEW SCH (09:50)
[2017-10-25] MEDS: VALSARTAN 40 MG TAB PO SCH (10:18)
--- NOTE | 2017-10-25 16:33 | EKG ---
Date Performed: 10/25/2017 Time Performed: 01:43:53 PTAGE: 87 years EKG: Sinus rhythm WITH FIRST DEGREE AV BLOCK LEFT BUNDLE BRANCH BLOCK ABNORMAL ECG when compared to prior EKG,patient now appears to be in dual chamber pacing at an increased rate PREVIOUS TRACING : 06/03/2009 02.22 DOCTOR: Mohinder Dickerson Interpretating Date/Time 10/25/2017 16:32:22
[2017-10-25] MEDS ORDERED: cefTRIAXone INJ 1,000 MG in SODIUM CHLORIDE 0.9% INJ 100 ML IV SCH (17:00)
[2017-10-25] MEDS ORDERED: DONEPEZIL HCL 5 MG TAB PO SCH (21:00)
[2017-10-25] MEDS ORDERED: MIRTAZAPINE 15 MG TAB PO SCH (21:00)
[2017-10-26] VITALS: BP 146/67; PULSE 83; RESP 20; TEMP 97.1; O2SAT 93
[2017-10-26 04:00] VITALS: BP 172/75; PULSE 81; RESP 20; TEMP 96; O2SAT 94
[2017-10-26] MEDS: LEVOTHYROXINE SODIUM 150 MCG TAB PO SCH (05:35)
[2017-10-26] MEDS: GLIMEPIRIDE 2 MG TAB PO SCH ×2 (05:35→16:25)
[2017-10-26 06:44] LABS: AUTOMATED NEUTROPHIL # 4.2 TH/MM3 (1.8-7.7); BASOPHIL % 0.5 % (0.0-2.0); EOSINOPHIL # 0.7 TH/MM3 (0-0.4); HEMATOCRIT 37.9 % (35.0-46.0); LYMPH % 36.4 % (9.0-44.0); LYMPHOCYTE # 3.2 TH/MM3 (1.0-4.8); MEAN CELL VOLUME 87.7 FL (80.0-100.0); MEAN CORPUSCULAR HEMOGLOBIN 28.6 PG (27.0-34.0); MEAN CORPUSCULAR HGB CONC 32.6 % (32.0-36.0); MEAN PLATELET VOLUME 8.2 FL (7.0-11.0); MONO % 8.3 % (0.0-8.0); MONOCYTE # 0.7 TH/MM3 (0-0.9); NEUT % 46.8 % (16.0-70.0); PLATELET COUNT 194 TH/MM3 (150-450); RED BLOOD COUNT 4.32 MIL/MM3 (4.00-5.30); RED CELL DISTRIBUTION WIDTH 13.9 % (11.6-17.2); WHITE BLOOD COUNT 8.8 TH/MM3 (4.0-11.0)
[2017-10-26 07:00] LABS: HEMOGLOBIN 12.4 GM/DL (11.6-15.3)
[2017-10-26 07:03] LABS: BICARBONATE 26.4 MEQ/L (21.0-32.0)
[2017-10-26 07:04] LABS: CALCIUM 8.3 MG/DL (8.5-10.1)
[2017-10-26 07:06] LABS: CREATININE 0.85 MG/DL (0.50-1.00)
[2017-10-26 07:15] VITALS: PULSE 74
[2017-10-26] MEDS: INSULIN ASPART SUPPLEMENTAL SCALE SQ SCH ×3 (07:37→16:29)
[2017-10-26 08:00] VITALS: BP 166/83; PULSE 76; RESP 17; TEMP 96.7; O2SAT 95
[2017-10-26] MEDS: PIOGLITAZONE HCL 15 MG TAB PO SCH (08:06)
[2017-10-26] MEDS: SODIUM CHLOR 0.45% 1000 ML INJ 1,000 ML IV SCH (08:07)
[2017-10-26] MEDS: ASPIRIN 81 MG CHEW TAB CHEW SCH (08:09)
[2017-10-26] MEDS: VALSARTAN 40 MG TAB PO SCH (08:10)
[2017-10-26] MEDS: SODIUM CHLORIDE 0.9% FLUSH 10 ML FLUSH IV FLUSH SCH (08:10)
[2017-10-26] MEDS: CARVEDILOL 12.5 MG TAB PO SCH (08:10)
[2017-10-26] MEDS: FERROUS SULFATE 325 MG (65 MG ELEMENTAL IRON) TAB PO SCH (08:11)
[2017-10-26] MEDS: MEMANTINE HCL 10 MG TAB PO SCH (08:11)
[2017-10-26] MEDS: PRAVASTATIN SOD 40 MG TAB PO SCH (08:11)
[2017-10-26] MEDS: PANTOPRAZOLE SOD 40 MG DELAYED RELEASE TAB PO SCH (08:11)
[2017-10-26] MEDS: levETIRAcetam 500 MG TAB PO SCH ×2 (08:11→11:43)
--- NOTE | 2017-10-26 08:48 | HHI.PR ---
Subjective Remarks Patient denies any nausea or vomiting. She has had no abdominal pain or dysuria. Urine output is good. She has been afebrile. Bowels have moved twice since admission. Blood pressure was higher this morning. Denies any headache. Eating well. Current Medications Medications (Trade) Dose Ordered Sig/Shirley Route Start Time Stop Time Status Last Admin (NS Flush) 2 ml UNSCH PRN IVF 10/25/17 01:30 Sodium Chloride 1,000 ml @ 75 mls/hr [id number] IV 10/25/17 03:23 10/26/17 08:07 (NS Flush) 2 ml UNSCH PRN IV FLUSH 10/25/17 03:30 (NS Flush) 2 ml BID IV FLUSH 10/25/17 09:00 10/25/17 21:43 (Tylenol) 650 mg Q4H PRN PO 10/25/17 03:30 (Narcan Inj) 0.4 mg UNSCH PRN IV PUSH 10/25/17 03:30 (Milk Of Magnesia Liq) 30 ml Q12H PRN PO 10/25/17 03:30 (Senokot) 17.2 mg Q12H PRN PO 10/25/17 03:30 (Dulcolax Supp) 10 mg DAILY PRN RECTAL 10/25/17 03:30 (Aspirin Chew) 162 mg DAILY CHEW 10/25/17 09:00 10/26/17 08:09 (Coreg) 12.5 mg BID PO 10/25/17 09:00 10/26/17 08:10 (Keppra) 1,000 mg BID PO 10/25/17 09:00 10/26/17 08:11 (Synthroid) 150 mcg DAILY@0600 PO 10/25/17 06:00 10/26/17 05:35 (Namenda) 10 mg DAILY PO 10/25/17 09:00 10/26/17 08:11 (Remeron) 7.5 mg HS PO 10/25/17 21:00 10/25/17 21:41 (Protonix) 40 mg DAILY PO 10/25/17 09:00 10/26/17 08:11 (Januvia) 100 mg DAILY PO 10/25/17 09:00 10/26/17 08:10 (Diovan) 160 mg DAILY PO 10/25/17 09:00 10/26/17 08:10 (Pravachol) 40 mg DAILY PO 10/25/17 09:00 10/26/17 08:11 (Keppra) 500 mg DAILY@1200 PO 10/25/17 12:00 10/25/17 13:14 (Actos) 15 mg DAILYAC PO 10/25/17 08:00 10/26/17 08:06 (Ferrous Sulfate) 325 mg DAILY PO 10/25/17 09:00 10/26/17 08:11 (Amaryl) 2 mg BIDAC PO 10/25/17 07:00 10/26/17 05:35 (Aricept) 10 mg HS PO 10/25/17 21:00 10/25/17 21:40 Ceftriaxone Sodium 1000 mg/ Sodium Chloride 100 ml @ 200 mls/hr Q24H IV 10/25/17 17:00 10/25/17 16:26 (D50w (Vial) Inj) 50 ml UNSCH PRN IV PUSH 10/25/17 03:45 (Glucagon Inj) 1 mg UNSCH PRN OTHER 10/25/17 03:45 (NovoLOG SUPPLEMENTAL SCALE) 1 ACHS SLIDING SCALE SQ 10/25/17 08:00 10/25/17 21:48 (Zofran Odt) 4 mg Q6H PRN PO 10/25/17 03:45 (Pill Splitter) 1 ea UNSCH PRN OTHER 10/25/17 03:45 Objective Vital Signs Date Time Temp Pulse Resp B/P (MAP) Pulse Ox O2 Delivery O2 Flow Rate FiO2 10/26/17 04:00 96.0 81 20 172/75 (107) 94 10/26/17 00:00 97.1 83 20 146/67 (93) 93 10/25/17 22:00 81 10/25/17 21:36 97.4 75 18 151/70 (97) 94 10/25/17 20:00 97.4 85 20 180/72 (108) 94 10/25/17 12:02 96.6 78 18 137/63 (87) 97 I/O 10/25/17 10/25/17 10/25/17 10/26/17 10/26/17 10/26/17 07:00 15:00 23:00 07:00 15:00 23:00 Intake Total 900 ml 1885 ml 560 ml Balance 900 ml 1885 ml 560 ml Intake Oral 200 ml 960 ml 60 ml IV Total 700 ml 925 ml 500 ml # Voids 2 3 3 1 # Bowel Movements 0 0 1 Cardiovascular: Regular rate and rhythm Lungs: Clear to auscultation Abdomen: Obese, soft, nontender, nondistended with bowel sounds present, no CVAT Extremities: No edema. No calf tenderness. No Homans sign. Result Diagram: 10/26/17 0550 10/26/17 0550 Other Results Urine culture pending. Assessment and Plan Problem List: (1) Sepsis ICD Codes: A41.9 - Sepsis, unspecified organism Status: Resolved Plan: Lactic acid has returned to normal. No evidence of any hypotension or tachycardia. Will discontinue IV fluids as patient is eating well. (2) UTI (urinary tract infection) ICD Codes: N39.0 - Urinary tract infection, site not specified Status: Acute Plan: The patient has been receiving Rocephin. She is clinically improved. Will await culture report which should be available this afternoon. Patient will likely be discharged home later today with oral antibiotic and close outpatient follow-up. (3) Hypertension ICD Codes: I10 - Hypertension Status: Chronic Plan: Blood pressure is higher this morning. The patient is due for her a.m. medications. Will monitor blood pressure and adjust antihypertensive therapy if needed. (4) Hypothyroidism ICD Codes: E03.9 - Hypothyroidism Status: Chronic Plan: Continue with levothyroxine (5) Diabetes mellitus ICD Codes: E11.9 - Diabetes mellitus Status: Chronic Plan: Adequate glycemic control with current medication regimen. Continue to follow glucose levels and cover with sliding scale if needed. (6) Hypercholesterolemia ICD Codes: E78.0 - Hypercholesterolemia Status: Chronic Plan: Continue with statin therapy. Discharge Planning The patient is doing very well this morning. She has a very strong desire to be discharged home. Will await report from culture which should be available early this afternoon. If she continues to do well, will transition to oral antibiotic and send patient home with close outpatient follow-up. Problem Qualifiers (1) Sepsis: Qualified Codes: A41.9 - Sepsis, unspecified organism (2) UTI (urinary tract infection): Qualified Codes: N30.00 - Acute cystitis without hematuria (3) Hypertension: Qualified Codes: I10 - Essential (primary) hypertension (4) Hypothyroidism: Qualified Codes: E03.9 - Hypothyroidism, unspecified (5) Diabetes mellitus: Mauricio Munoz MD Oct 26, 2017 08:48
[2017-10-26 12:00] VITALS: BP 180/80; PULSE 70; RESP 18; TEMP 96.1; O2SAT 95
[2017-10-26] MEDS ORDERED: cloNIDine HCL 0.1 MG TAB PO PRN (14:15)
[2017-10-26 16:00] VITALS: BP 164/85; PULSE 70; RESP 17; TEMP 96.3; O2SAT 97
[2017-10-26] MEDS ORDERED: CEFU1TAB20 PO (17:36)
[2017-10-26] MEDS ORDERED: AMAR2TAB PO (17:36)
[2017-10-26] MEDS ORDERED: FERR325T20 PO (17:36)
[2017-10-26] MEDS ORDERED: ACTO15TA22 PO (17:36)
[2017-10-26] MEDS ORDERED: NAME10TA PO (17:36)
--- NOTE | 2017-10-26 17:43 | HHI.DS ---
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 Diagnosis: Secondary ICD Codes: F03.90 - Unspecified dementia without behavioral disturbance (3) UTI (urinary tract infection) Diagnosis: Secondary ICD Codes: N39.0 - Urinary tract infection, site not specified Status: Acute (4) Diabetes mellitus Diagnosis: Secondary ICD Codes: E11.9 - Diabetes mellitus Status: Chronic (5) Hypercholesterolemia Diagnosis: Secondary ICD Codes: E78.0 - Hypercholesterolemia Status: Chronic (6) Hypothyroidism Diagnosis: Secondary ICD Codes: E03.9 - Hypothyroidism Status: Chronic (7) Hypertension Diagnosis: Secondary ICD Codes: I10 - Hypertension Status: Chronic Brief History 87-year-old white female well known to the undersigned physician presented to the emergency department with several hours of nausea and repeated emesis. The patient was unable to hold down any solids or liquids. She denied any abdominal pain, fever, chills, dysuria, hematuria, diarrhea, constipation, hematemesis, melena, hematochezia, or hemoptysis. In the emergency department, the patient was found to have a urinalysis suspicious for urinary tract infection. Her vital signs revealed a heart rate elevated at 101. Her lactic acid was elevated at 2.5. Based on these criteria, the patient was diagnosed with sepsis, likely due to urinary tract infection. She was initiated on IV fluids and given IV ceftriaxone in the emergency department. The patient would be admitted to a medical surgical bed with telemetry for more definitive treatment. CBC/BMP: 10/26/17 0550 10/26/17 0550 Significant Findings Laboratory Tests Test 10/25/17 01:44 10/25/17 02:23 10/25/17 04:50 10/26/17 05:50 White Blood Count 15.9 TH/MM3 (4.0-11.0) Neutrophils (%) (Auto) 78.0 % (16.0-70.0) Basophils (%) (Auto) 2.1 % (0.0-2.0) Neutrophils # (Auto) 12.4 TH/MM3 (1.8-7.7) Eosinophils # (Auto) 0.5 TH/MM3 (0-0.4) 0.7 TH/MM3 (0-0.4) Basophils # (Auto) 0.3 TH/MM3 (0-0.2) Urine Protein 100 mg/dL (NEG-TRACE) Urine Glucose (UA) 250 mg/dL (NEG) Urine Ketones 15 mg/dL (NEG) Urine Occult Blood SMALL (NEG) Urine Nitrite POS (NEG) Urine Bacteria MANY /hpf (NONE) Random Glucose 245 MG/DL (74-106) 150 MG/DL (74-106) Sodium Level 135 MEQ/L (136-145) Estimat Glomerular Filtration Rate 59 ML/MIN (>89) 63 ML/MIN (>89) Lactic Acid Level 2.5 mmol/L (0.4-2.0) Monocytes (%) (Auto) 8.3 % (0.0-8.0) Eosinophils (%) (Auto) 8.0 % (0.0-4.0) Calcium Level 8.3 MG/DL (8.5-10.1) Hospital Course The patient was admitted to a medical surgical bed with telemetry. She was given IV fluids and a repeat lactic acid level decreased to 2.0 which was within normal limits. Her heart rate came back to normal very quickly after receiving the IV fluids. The patient remained hemodynamically stable throughout the remainder of the hospitalization. She does have a history of diabetes, so her blood glucose levels were monitored and a sliding scale of NovoLog insulin was ordered to be used in conjunction with her oral hypoglycemic medications in case of elevated glucose levels. By the following morning, the patient was eating well. She denied any nausea or vomiting. She had a strong desire to be discharged home. She did ambulate with physical therapy with a walker, which is her baseline. Her bowels are moving well. Urine output was good. On the day of discharge, her blood pressure was elevated, but the patient expressed anxiety about having to stay in the hospital 1 more night. She had a very strong desire to be discharged home. After receiving clonidine 0.1 mg by mouth, her blood pressure did improve but remained elevated. The patient's daughter is a physician and the undersigned physician consulted with the daughter and it was felt that the patient would benefit from being discharged home as her anxiety was increasing about being in the hospital. This in turn was raising her blood pressure. It was felt that the family could monitor her blood pressure at home and notify me if there was any persistent elevation. The patient's urine culture revealed gram-negative rods. At the time of discharge, the organism identification and sensitivities were still pending. The patient was discharged home in good condition. She was instructed to resume a diabetic heart healthy diet. Activity would be as tolerated. The patient will be ambulate with a walker as usual. She will resume her usual medications, which were listed on the medication reconciliation sheet. In addition, she would be given a prescription for cefuroxime 500 mg twice daily with food for 7 days. This prescription was sent into her pharmacy. The patient would notify the undersigned physician for any recurrent nausea, vomiting, temperature >100.5F. The patient will followup with the undersigned physician in one week in the office. The patient should call for an appointment. Pt Condition on Discharge: Good Discharge Disposition: Discharge Home Discharge Instructions DIET: Follow Instructions for: Heart Healthy Diet, Diabetic Diet Activities you can perform: Regular-No Restrictions Mauricio Munoz MD Oct 26, 2017 17:42
[2017-10-26] MEDS ORDERED: CEFUROXIME AXETIL 500 MG TAB PO SCH (21:00)
== END 2017-10-26 19:01 | disposition home or self-care (01) | DRG 872 ==
LOC: PHED 00:43 → PHEDA 03:22 → PH3B 04:08
PROVIDERS: ADMIT Family Medicine; ATTEND Family Medicine
DX: A41.9 Sepsis, unspecified organism (principal); E11.49 Type 2 diabetes mellitus with other diabetic neurological complication; I48.91 Unspecified atrial fibrillation; N39.0 Urinary tract infection, site not specified; F03.90 Unspecified dementia, unspecified severity, without behavioral disturbance, psychotic disturbance, mood disturbance, and anxiety; I10 Essential (primary) hypertension; G57.10 Meralgia paresthetica, unspecified lower limb; E03.9 Hypothyroidism, unspecified; E07.9 Disorder of thyroid, unspecified; K52.9 Noninfective gastroenteritis and colitis, unspecified; I25.10 Atherosclerotic heart disease of native coronary artery without angina pectoris; E78.5 Hyperlipidemia, unspecified; E78.00 Pure hypercholesterolemia, unspecified; M19.90 Unspecified osteoarthritis, unspecified site; I44.0 Atrioventricular block, first degree; I44.7 Left bundle-branch block, unspecified; F41.9 Anxiety disorder, unspecified; E66.9 Obesity, unspecified; K21.9 Gastro-esophageal reflux disease without esophagitis; G89.29 Other chronic pain; M47.816 Spondylosis without myelopathy or radiculopathy, lumbar region; Z96.1 Presence of intraocular lens; Z23 Encounter for immunization; Z90.710 Acquired absence of both cervix and uterus; Z86.73 Personal history of transient ischemic attack (TIA), and cerebral infarction without residual deficits; Z95.0 Presence of cardiac pacemaker; Z87.440 Personal history of urinary (tract) infections; Z68.28 Body mass index [BMI] 28.0-28.9, adult; Z79.84 Long term (current) use of oral hypoglycemic drugs
CPT/HCPCS: 74019; 80048; 80053; 81001; 82948; 83605; 83690; 85025; 87040; 87077; 87086; 87186; 87205; 93005; J0696; J1815; J7040

== ENCOUNTER 2017-11-28 12:11 | Observation (INO) ==
--- NOTE | 2017-11-28 13:25 | ED ---
HPI General Chief complaint: Eye Problems Stated complaint: Eye complaint Time Seen by Provider: 11/28/17 12:44 Source: patient Mode of arrival: ambulatory Limitations: no limitations History of Present Illness HPI Narrative: 87-year-old female presents to the emergency department with complaint of 2 episodes of double vision since this morning. Her daughter is an industrial engineering manager and is at the bedside and said she had 2 episodes of transient bilateral diplopia. She has no complaints at this time. Denies confusion, disorientation, change in mentation, slurred speech, focal deficits or weakness. Denies headache. Denies any pain at this time. No treatments tried. No known aggravating or relieving factors. Symptoms are mild to moderate in severity. She has history of aneurysm with coil, diabetes mellitus , hypertension, pacemaker. Neurologist is Dr. Sousa. Primary CARE providers Dr. Munoz. Allergic to penicillin and IV contrast dye. Has no other medical complaints. No other modifying factors or associated signs and symptoms. Related Data Home Medications Medication Instructions Recorded Confirmed aspirin 11/28/17 carvedilol [Coreg] 12.5 mg PO BID 11/28/17 11/28/17 donepezil [Aricept] See Label Instructions .ROUTE 11/28/17 11/28/17 .COMPLEX levetiracetam [Keppra] 11/28/17 levothyroxine [Synthroid] 150 mcg PO DAILY 11/28/17 11/28/17 memantine [Namenda] 11/28/17 methenamine mandelate See Label Instructions .ROUTE 11/28/17 .COMPLEX mirtazapine [Remeron] 7.5 mg PO DAILY 11/28/17 11/28/17 pantoprazole [Protonix] 40 mg PO DAILY 11/28/17 11/28/17 simvastatin 10 mg PO QPM 11/28/17 11/28/17 sitagliptin [Januvia] 100 mg PO DAILY 11/28/17 11/28/17 valsartan 160 mg PO BID 11/28/17 11/28/17 Allergies Allergy/AdvReac Type Severity Reaction Status Date / Time diatrizoate meglumine Allergy Intermediate Verified 10/25/17 01:13 gadobenic acid Allergy Intermediate Verified 10/25/17 01:13 gadodiamide Allergy Intermediate Verified 10/25/17 01:13 gadoteridol Allergy Intermediate Verified 10/25/17 01:13 iodixanol Allergy Intermediate Verified 10/25/17 01:13 iohexol Allergy Intermediate Verified 10/25/17 01:13 penicillin G Allergy Intermediate Verified 10/25/17 01:13 Review of Systems ROS Unobtainable All other systems reviewed negative except as stated in [facility] Medical History Medical History Dementia (Acute) Diabetes (Acute) GERD (gastroesophageal reflux disease) (Acute) Hypertension (Acute) Social History Social History Substance History: No History of Abuse Second Hand Smoke Exposure: No Smoking Status: Former smoker Tobacco Type: Cigarettes How Often Do You Have a Drink Containing Alcohol: Never Hx Recent Travel: No Recent Travel in [facility] within the Last 8 Weeks: No Recent Out of Country Travel within the Last 8 Weeks: No Immunization History Tetanus Immunization: <5 Years Exam Narrative Exam Narrative: GENERAL: Well-nourished, well-developed elderly, female patient, in no acute distress SKIN: Warm and dry. HEAD: Atraumatic. Normocephalic. No facial droop noted. Tongue midline. Shoulder shrug equal. Finger to nose test normal. EYES: Pupils equal and round at 3 mm with brisk reaction. No scleral icterus. No injection or drainage. PERRLA. EOMI. ENT: Mucosa pink and moist. Airway patent. NECK: Trachea midline. No lymphadenopathy. CARDIOVASCULAR: Regular rate. RESPIRATORY: No accessory muscle use. GASTROINTESTINAL: Flat. MUSCULOSKELETAL: No obvious deformities. No clubbing. No cyanosis. No edema. NEUROLOGICAL: Awake and alert. Oriented 3. No obvious cranial nerve deficits. Motor grossly within normal limits. Normal speech. No ataxia. No mid -line drift. No upper or lower extremity drift. Degreasing Wheel Operator strength equal bilaterally. Sensory intact and equal bilaterally. Moves all extremities. Active plantar and dorsiflexion and strength equal bilaterally. 5/5 strength to all extremities. PSYCHIATRIC: Appropriate mood and affect; insight and judgment normal. Course Reevaluation(s) Reevaluation #1: case reviewed with Dr. Sousa, pt's neurologist, agrees with plan of care for obs for TIA workup. Will place consult to his group Initial Documented Vital Signs Temperature 98.1 F 11/28/17 12:26 Pulse Rate 84 07/23/18 12:26 Respiratory Rate 18 11/28/17 12:26 Blood Pressure 192/75 H 11/28/17 12:26 Pulse Oximetry 100 11/28/17 12:26 Last Documented Vital Signs Temperature 97.5 F L 11/29/17 19:48 Pulse Rate 83 11/29/17 19:48 Respiratory Rate 18 11/29/17 19:48 Blood Pressure 127/60 11/29/17 19:48 Pulse Oximetry 83 L 11/29/17 19:48 Medical Decision Making ISRRAEL Attestation ISRRAEL supervised visit: Yes Attestation: I, Dr. Soria, have reviewed the advance practice practitioner's documentation and am in agreement, met with the patient face to face, made the diagnosis, and the medical decision making was done by me. *My assessment and Findings: Patient with symptoms of TIA. Patient will be given an aspirin. Call was made to Dr. Sousa, patient's neurologist as well as to [facility] for admission. Patient is asymptomatic at this time. MDM Narrative Medical decision making narrative: 87-year-old female presents with 2 episodes of diplopia this morning. Her daughter is with her and she has an industrial engineering manager here at [employer] and there is concern for possible TIA. Patient' s neuro exam is unremarkable. She has no complaints at this time. I discussed the patient with Dr. Soria, my attending physician, and plan of care discussed. She will also evaluate the patient. CT head, CBC, CMP, coags, aspirin ordered. 1440: CT head with no significant changes since CT with 2016 in no acute findings at this time. Copy of the CT report provided to the patient and family. case reviewed with Dr. Will who accepts pt to service Differential Diagnosis Differential Diagnosis: Diplopia, Lab Data Result diagrams: 11/28/17 14:50 11/29/17 06:31 Lab Results 11/28/17 11/28/17 11/28/17 Range/Units 14:50 14:50 14:50 WBC 10.6 (4.0-11.0) th/mm3 RBC 4.76 (4.00-5.30) mil/mm3 Hgb 13.8 (11.6-15.3) gm/dL Hct 40.8 (35.0-46.0) % MCV 85.8 (80.0-100.0) fL MCH 29.0 (27.0-34.0) pg MCHC 33.8 (32.0-36.0) % RDW 14.9 (11.6-17.2) % Plt Count 204 (150-450) th/mm3 MPV 8.1 (7.0-11.0) fL Neut % (Auto) 56.8 (16.0-70.0) % Lymph % (Auto) 27.6 (9.0-44.0) % [place] % (Auto) 8.4 H (0.0-8.0) % Eos % (Auto) 6.6 H (0.0-4.0) % Baso % (Auto) 0.6 (0.0-2.0) % Neut # (Auto) 6.0 (1.8-7.7) th/mm3 Lymph # (Auto) 2.9 (1.0-4.8) th/mm3 [place] # (Auto) 0.9 (0.0-0.9) th/mm3 Eos # (Auto) 0.7 H (0.0-0.4) th/mm3 Baso # (Auto) 0.1 (0.0-0.2) th/mm3 WBC Differential . Differential Comment Auto diff final ESR (0-30) mm/hr PT 10.4 (9.8-11.6) sec INR 1.0 Ratio APTT 24.4 (24.3-30.1) sec Sodium 136 (136-145) meq/L Potassium 4.1 (3.5-5.1) meq/L Chloride 101 (98-107) meq/L Carbon Dioxide 27.0 (21.0-32.0) meq/L Anion Gap 8 (5-15) meq/L BUN 11 (7-18) mg/dL Creatinine 0.95 (0.50-1.00) mg/dL Estimated GFR 56 L (>89) mL/min POC Glucose (68-110) mg/dl Random Glucose 199 H (74-106) mg/dL Calcium 8.8 (8.5-10.1) mg/dL Total Bilirubin 0.3 (0.2-1.0) mg/dL AST 32 (15-37) U/L ALT 39 (10-53) U/L Alkaline Phosphatase 66 (45-117) U/L C-Reactive Protein (0.00-0.30) mg/dL Total Protein 7.4 (6.4-8.2) g/dL Albumin 3.5 (3.4-5.0) g/dL Triglycerides (42-150) mg/dL Cholesterol (120-200) mg/dL LDL Cholesterol, Calc (0-99) mg/dL HDL Cholesterol (40.0-60.0) mg/dL Cholesterol/HDL Ratio Ratio Thiamine (70-180) nmol/L Vitamin B12 (193-986) pg/mL TSH (0.358-3.740) uIU/mL Thyroxine (T4) (4.8-13.9) mcg/dL Acetylchol Rcpt Bind Ab nmol/L 11/28/17 11/28/17 11/28/17 Range/Units 14:50 14:50 14:50 WBC (4.0-11.0) th/mm3 RBC (4.00-5.30) mil/mm3 Hgb (11.6-15.3) gm/dL Hct (35.0-46.0) % MCV (80.0-100.0) fL MCH (27.0-34.0) pg MCHC (32.0-36.0) % RDW (11.6-17.2) % Plt Count (150-450) th/mm3 MPV (7.0-11.0) fL Neut % (Auto) (16.0-70.0) % Lymph % (Auto) (9.0-44.0) % [place] % (Auto) (0.0-8.0) % Eos % (Auto) (0.0-4.0) % Baso % (Auto) (0.0-2.0) % Neut # (Auto) (1.8-7.7) th/mm3 Lymph # (Auto) (1.0-4.8) th/mm3 [place] # (Auto) (0.0-0.9) th/mm3 Eos # (Auto) (0.0-0.4) th/mm3 Baso # (Auto) (0.0-0.2) th/mm3 WBC Differential Differential Comment ESR 9 (0-30) mm/hr PT (9.8-11.6) sec INR Ratio APTT (24.3-30.1) sec Sodium (136-145) meq/L Potassium (3.5-5.1) meq/L Chloride (98-107) meq/L Carbon Dioxide (21.0-32.0) meq/L Anion Gap (5-15) meq/L BUN (7-18) mg/dL Creatinine (0.50-1.00) mg/dL Estimated GFR (>89) mL/min POC Glucose (68-110) mg/dl Random Glucose (74-106) mg/dL Calcium (8.5-10.1) mg/dL Total Bilirubin (0.2-1.0) mg/dL AST (15-37) U/L ALT (10-53) U/L Alkaline Phosphatase (45-117) U/L C-Reactive Protein Less than 0.29 (0.00-0.30) mg/dL Total Protein (6.4-8.2) g/dL Albumin (3.4-5.0) g/dL Triglycerides (42-150) mg/dL Cholesterol (120-200) mg/dL LDL Cholesterol, Calc (0-99) mg/dL HDL Cholesterol (40.0-60.0) mg/dL Cholesterol/HDL Ratio Ratio Thiamine (70-180) nmol/L Vitamin B12 1592 H (193-986) pg/mL TSH 1.400 (0.358-3.740) uIU/mL Thyroxine (T4) 11.8 (4.8-13.9) mcg/dL Acetylchol Rcpt Bind Ab nmol/L 11/28/17 11/28/17 11/28/17 Range/Units 19:45 19:45 20:15 WBC (4.0-11.0) th/mm3 RBC (4.00-5.30) mil/mm3 Hgb (11.6-15.3) gm/dL Hct (35.0-46.0) % MCV (80.0-100.0) fL MCH (27.0-34.0) pg MCHC (32.0-36.0) % RDW (11.6-17.2) % Plt Count (150-450) th/mm3 MPV (7.0-11.0) fL Neut % (Auto) (16.0-70.0) % Lymph % (Auto) (9.0-44.0) % [place] % (Auto) (0.0-8.0) % Eos % (Auto) (0.0-4.0) % Baso % (Auto) (0.0-2.0) % Neut # (Auto) (1.8-7.7) th/mm3 Lymph # (Auto) (1.0-4.8) th/mm3 [place] # (Auto) (0.0-0.9) th/mm3 Eos # (Auto) (0.0-0.4) th/mm3 Baso # (Auto) (0.0-0.2) th/mm3 WBC Differential Differential Comment ESR (0-30) mm/hr PT (9.8-11.6) sec INR Ratio APTT (24.3-30.1) sec Sodium (136-145) meq/L Potassium (3.5-5.1) meq/L Chloride (98-107) meq/L Carbon Dioxide (21.0-32.0) meq/L Anion Gap (5-15) meq/L BUN (7-18) mg/dL Creatinine (0.50-1.00) mg/dL Estimated GFR (>89) mL/min POC Glucose 256 H (68-110) mg/dl Random Glucose (74-106) mg/dL Calcium (8.5-10.1) mg/dL Total Bilirubin (0.2-1.0) mg/dL AST (15-37) U/L ALT (10-53) U/L Alkaline Phosphatase (45-117) U/L C-Reactive Protein (0.00-0.30) mg/dL Total Protein (6.4-8.2) g/dL Albumin (3.4-5.0) g/dL Triglycerides (42-150) mg/dL Cholesterol (120-200) mg/dL LDL Cholesterol, Calc (0-99) mg/dL HDL Cholesterol (40.0-60.0) mg/dL Cholesterol/HDL Ratio Ratio Thiamine 145 (70-180) nmol/L Vitamin B12 (193-986) pg/mL TSH (0.358-3.740) uIU/mL Thyroxine (T4) (4.8-13.9) mcg/dL Acetylchol Rcpt Bind Ab Less than 0.30 nmol/L 11/29/17 11/29/17 11/29/17 Range/Units 06:02 06:31 06:31 WBC (4.0-11.0) th/mm3 RBC (4.00-5.30) mil/mm3 Hgb (11.6-15.3) gm/dL Hct (35.0-46.0) % MCV (80.0-100.0) fL MCH (27.0-34.0) pg MCHC (32.0-36.0) % RDW (11.6-17.2) % Plt Count (150-450) th/mm3 MPV (7.0-11.0) fL Neut % (Auto) (16.0-70.0) % Lymph % (Auto) (9.0-44.0) % [place] % (Auto) (0.0-8.0) % Eos % (Auto) (0.0-4.0) % Baso % (Auto) (0.0-2.0) % Neut # (Auto) (1.8-7.7) th/mm3 Lymph # (Auto) (1.0-4.8) th/mm3 [place] # (Auto) (0.0-0.9) th/mm3 Eos # (Auto) (0.0-0.4) th/mm3 Baso # (Auto) (0.0-0.2) th/mm3 WBC Differential Differential Comment ESR (0-30) mm/hr PT (9.8-11.6) sec INR Ratio APTT (24.3-30.1) sec Sodium 137 (136-145) meq/L Potassium 3.8 (3.5-5.1) meq/L Chloride 102 (98-107) meq/L Carbon Dioxide 25.0 (21.0-32.0) meq/L Anion Gap 10 (5-15) meq/L BUN 13 (7-18) mg/dL Creatinine 0.91 (0.50-1.00) mg/dL Estimated GFR 59 L (>89) mL/min POC Glucose 278 H (68-110) mg/dl Random Glucose 279 H (74-106) mg/dL Calcium 9.1 (8.5-10.1) mg/dL Total Bilirubin (0.2-1.0) mg/dL AST (15-37) U/L ALT (10-53) U/L Alkaline Phosphatase (45-117) U/L C-Reactive Protein (0.00-0.30) mg/dL Total Protein (6.4-8.2) g/dL Albumin (3.4-5.0) g/dL Triglycerides 50 (42-150) mg/dL Cholesterol 175 (120-200) mg/dL LDL Cholesterol, Calc 99 (0-99) mg/dL HDL Cholesterol 66.4 H (40.0-60.0) mg/dL Cholesterol/HDL Ratio 2.63 Ratio Thiamine (70-180) nmol/L Vitamin B12 (193-986) pg/mL TSH (0.358-3.740) uIU/mL Thyroxine (T4) (4.8-13.9) mcg/dL Acetylchol Rcpt Bind Ab nmol/L 11/29/17 11/29/17 11/29/17 Range/Units 07:54 11:37 17:02 WBC (4.0-11.0) th/mm3 RBC (4.00-5.30) mil/mm3 Hgb (11.6-15.3) gm/dL Hct (35.0-46.0) % MCV (80.0-100.0) fL MCH (27.0-34.0) pg MCHC (32.0-36.0) % RDW (11.6-17.2) % Plt Count (150-450) th/mm3 MPV (7.0-11.0) fL Neut % (Auto) (16.0-70.0) % Lymph % (Auto) (9.0-44.0) % [place] % (Auto) (0.0-8.0) % Eos % (Auto) (0.0-4.0) % Baso % (Auto) (0.0-2.0) % Neut # (Auto) (1.8-7.7) th/mm3 Lymph # (Auto) (1.0-4.8) th/mm3 [place] # (Auto) (0.0-0.9) th/mm3 Eos # (Auto) (0.0-0.4) th/mm3 Baso # (Auto) (0.0-0.2) th/mm3 WBC Differential Differential Comment ESR (0-30) mm/hr PT (9.8-11.6) sec INR Ratio APTT (24.3-30.1) sec Sodium (136-145) meq/L Potassium (3.5-5.1) meq/L Chloride (98-107) meq/L Carbon Dioxide (21.0-32.0) meq/L Anion Gap (5-15) meq/L BUN (7-18) mg/dL Creatinine (0.50-1.00) mg/dL Estimated GFR (>89) mL/min POC Glucose 308 H 266 H 327 H (68-110) mg/dl Random Glucose (74-106) mg/dL Calcium (8.5-10.1) mg/dL Total Bilirubin (0.2-1.0) mg/dL AST (15-37) U/L ALT (10-53) U/L Alkaline Phosphatase (45-117) U/L C-Reactive Protein (0.00-0.30) mg/dL Total Protein (6.4-8.2) g/dL Albumin (3.4-5.0) g/dL Triglycerides (42-150) mg/dL Cholesterol (120-200) mg/dL LDL Cholesterol, Calc (0-99) mg/dL HDL Cholesterol (40.0-60.0) mg/dL Cholesterol/HDL Ratio Ratio Thiamine (70-180) nmol/L Vitamin B12 (193-986) pg/mL TSH (0.358-3.740) uIU/mL Thyroxine (T4) (4.8-13.9) mcg/dL Acetylchol Rcpt Bind Ab nmol/L 11/29/17 Range/Units 20:44 WBC (4.0-11.0) th/mm3 RBC (4.00-5.30) mil/mm3 Hgb (11.6-15.3) gm/dL Hct (35.0-46.0) % MCV (80.0-100.0) fL MCH (27.0-34.0) pg MCHC (32.0-36.0) % RDW (11.6-17.2) % Plt Count (150-450) th/mm3 MPV (7.0-11.0) fL Neut % (Auto) (16.0-70.0) % Lymph % (Auto) (9.0-44.0) % [place] % (Auto) (0.0-8.0) % Eos % (Auto) (0.0-4.0) % Baso % (Auto) (0.0-2.0) % Neut # (Auto) (1.8-7.7) th/mm3 Lymph # (Auto) (1.0-4.8) th/mm3 [place] # (Auto) (0.0-0.9) th/mm3 Eos # (Auto) (0.0-0.4) th/mm3 Baso # (Auto) (0.0-0.2) th/mm3 WBC Differential Differential Comment ESR (0-30) mm/hr PT (9.8-11.6) sec INR Ratio APTT (24.3-30.1) sec Sodium (136-145) meq/L Potassium (3.5-5.1) meq/L Chloride (98-107) meq/L Carbon Dioxide (21.0-32.0) meq/L Anion Gap (5-15) meq/L BUN (7-18) mg/dL Creatinine (0.50-1.00) mg/dL Estimated GFR (>89) mL/min POC Glucose 344 H (68-110) mg/dl Random Glucose (74-106) mg/dL Calcium (8.5-10.1) mg/dL Total Bilirubin (0.2-1.0) mg/dL AST (15-37) U/L ALT (10-53) U/L Alkaline Phosphatase (45-117) U/L C-Reactive Protein (0.00-0.30) mg/dL Total Protein (6.4-8.2) g/dL Albumin (3.4-5.0) g/dL Triglycerides (42-150) mg/dL Cholesterol (120-200) mg/dL LDL Cholesterol, Calc (0-99) mg/dL HDL Cholesterol (40.0-60.0) mg/dL Cholesterol/HDL Ratio Ratio Thiamine (70-180) nmol/L Vitamin B12 (193-986) pg/mL TSH (0.358-3.740) uIU/mL Thyroxine (T4) (4.8-13.9) mcg/dL Acetylchol Rcpt Bind Ab nmol/L Imaging Data Radiologist's impression: Chest X-Ray 11/28/17 00:00 CONCLUSION: Stable exam with no acute cardiopulmonary disease. Head CT 11/28/17 13:00 CONCLUSION: 1. No acute infarct, acute hemorrhage, midline shift or extra-axial fluid collections. 2. 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 3. Encephalomalacia involving the left temporal lobe. 4. Mild central cerebral atrophy. 5. No significant change compared to 08/19/2015. . Carotid Doppler Study 11/29/17 00:00 CONCLUSION: Mild plaquing in the left carotid system with no evidence of a hemodynamically significant lesion. Head CTA 11/29/17 00:00 CONCLUSION: 1. Extensive artifact related to previous coil embolization in the expected region of the left posterior communicating artery. 2. Mild to moderate diffuse stenoses throughout the left posterior cerebral artery. Neck CTA 11/29/17 00:00 CONCLUSION: 1. Patent carotid arteries and vertebral arteries bilaterally. 2. 4 mm nodule involving the left upper lobe. This is nonspecific in its CT appearance. Discharge Plan Discharge Disposition Patient Disposition: 01 Discharge Home Discharge Condition Condition: Good Discharge Order Discharge Orders: Discharge Order (Routine); Ordered 11/29/17 Ordered By: Mauricio Munoz Discharge Details Anticipated Discharge Date: 11/29/17 Physicians Team ED Provider: Rosalba Soria ED Midlevel Provider: Shirley Dolan Primary Care Provider: Mauricio Munoz Attending Provider: Mauricio Munoz Other Providers: Fernando Hatch ; Fernando Melendez Status ED Status: Left Department Discharge Information Discharge Date/Time: 11/28/17 17:56
--- NOTE | 2017-11-28 13:43 | CT ---
EXAM DATE: 11/28/2017 1:37 PM EDT AGE/SEX: 87 years / Female INDICATIONS: Intermittent right side double vision. CLINICAL DATA: This is the patient's initial encounter. Patient reports that signs and symptoms have been present for 1 day and indicates a pain score of 3/10. MEDICAL/SURGICAL HISTORY: Diabetes. Hypertension. . ANEURYSM COIL RADIATION DOSE: 56.35 CTDI (mGy) COMPARISON: POI, CT BRAIN W/O CONTRAST, 08/19/2015. . TECHNIQUE: CT of the head without contrast. Using automated exposure control and adjustment of the mA and/or kV according to patient size, radiation dose was kept as low as reasonably achievable to ob tain optimal diagnostic quality images. DICOM format image data is available electronically for revi ew and comparison. FINDINGS: Scattered old lacunar infarcts are noted within the bilateral basal ganglia and bilateral c erebellar hemispheres. Encephalomalacia is noted involving the left temporal lobe and is unchanged. T he patient is status post coil embolization of aneurysm on the left. There is no acute hemorrhage, ac jimbo infarct, midline shift or extra axial fluid collections. The ventricles, sulci and cisterns are s table compared to the previous examination. Mild central cerebral atrophy is unchanged. 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 CONCLUSION: 1. No acute infarct, acute hemorrhage, midline shift or extra-axial fluid collections. 2. 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 3. Encephalomalacia involving the left temporal lobe. 4. Mild central cerebral atrophy. 5. No significant change compared to 08/19/2015. . Electronically signed by: Dannie Nayak MD 11/28/2017 1:41 PM EDT
[2017-11-28] MEDS ORDERED: Aspirin 325 MG Tablet PO ONE (13:49)
[2017-11-28 14:04] LABS: Alanine Aminotransferase 39 U/L (10-53)
[2017-11-28 14:06] LABS: Alkaline Phosphatase 66 U/L (45-117); Total Protein 7.4 g/dL (6.4-8.2)
[2017-11-28 15:39] LABS: Baso # (Auto) 0.1 th/mm3 (0.0-0.2); Baso % (Auto) 0.6 % (0.0-2.0); Eos # (Auto) 0.7 th/mm3 (0.0-0.4); Eos % (Auto) 6.6 % (0.0-4.0); Hematocrit 40.8 % (35.0-46.0); Hemoglobin 13.8 gm/dL (11.6-15.3); Lymph # (Auto) 2.9 th/mm3 (1.0-4.8); Lymph % (Auto) 27.6 % (9.0-44.0); Mean Corpuscular HGB Conc 33.8 % (32.0-36.0); Mean Corpuscular Volume 85.8 fL (80.0-100.0); Mean Platelet Volume 8.1 fL (7.0-11.0); Mono # (Auto) 0.9 th/mm3 (0.0-0.9); Mono % (Auto) 8.4 % (0.0-8.0); Neut % (Auto) 56.8 % (16.0-70.0); Platelet Count 204 th/mm3 (150-450); Red Blood Count 4.76 mil/mm3 (4.00-5.30); Red Cell Distribution Width 14.9 % (11.6-17.2); White Blood Count 10.6 th/mm3 (4.0-11.0)
[2017-11-28 15:48] LABS: Activated Partial Thrombo Time 24.4 sec (24.3-30.1); Prothrombin Time 10.4 sec (9.8-11.6)
[2017-11-28 16:04] LABS: Sodium 136 meq/L (136-145)
[2017-11-28 16:05] LABS: Albumin 3.5 g/dL (3.4-5.0); Anion Gap 8 meq/L (5-15); Aspartate Aminotransferase 32 U/L (15-37); Blood Urea Nitrogen 11 mg/dL (7-18); Calcium 8.8 mg/dL (8.5-10.1); Chloride 101 meq/L (98-107); Glomerular Filtration Rate 56 mL/min (>89); Glucose,Random 199 mg/dL (74-106); Potassium 4.1 meq/L (3.5-5.1)
--- NOTE | 2017-11-28 16:48 | P.HP ---
History of Present Illness Service: Hospitalist Primary Care Physician: Mauricio Munoz MD Chief Complaint: Double vision History of Present Illness: Patient is an 87-year-old female who presented to the emergency room this morning with a complaint of 2 episodes of double vision. She has a past medical history of DM 2, hypertension, hyperlipidemia, hypothyroidism, PVD and pacemaker placement. Primary care is Dr. Melendez. Reports a DVT approximately 1-2 years ago -family at bedside is uncertain of what medication was given to treat but they do report that she is currently on ASA 81 mg only. Also has a history of cerebral aneurysm with attempted coiling -this caused a rupture of the aneurysm and intracranial hemorrhage which resulted in a very prolonged hospitalization and recovery in 2003. As a result of this she does have some memory problems and a history of seizures although she denies any recent episodes. Currently follows with Dr. Sousa. She tells me that she experienced 2 episodes of double vision this morning that each lasted about 20-30 minutes. Recovery was spontaneous with no residual effects. Denies any similar episodes ever happening in the past. She did not experience any syncope or fall. No chest pain or palpitations. No headache at the time of vision changes although her reports that she has been complaining of sharp intermittent headaches that originate in the back of her head and last about 10-15 minutes before resolving on their own. She denies any weakness, numbness, slurred speech or other vision loss. No paralysis. No incontinence. She is eating and swallowing without difficulty. She additionally denies any chest pain or palpitations. Reports that her pacemaker is regularly interrogated and there has not been any problems. Denies any nausea vomiting or diarrhea. Her appetite is normal and she would like to eat. Has not had any difficulty urinating and bowel movements have been regular. Review of Systems All other systems reviewed negative except as stated in HPI PMFSH - History History Provided By: Patient, Family Member, Medical Record - Medical History Medical History: Medical History (Last Reviewed 11/28/17 @ 17:54 by SHELLY Torres) Aneurysm DVT (deep venous thrombosis) Dementia Diabetes GERD (gastroesophageal reflux disease) HLD (hyperlipidemia) History of seizure Hypertension - Surgical History Surgical History: Surgical History (Last Reviewed 11/28/17 @ 17:54 by SHELLY Torres) History of appendectomy - Family History Family History: Family History (Last Reviewed 11/28/17 @ 17:54 by SHELLY Torres) Other Family history non-contributory - Tobacco History Second Hand Smoke Exposure: No Tobacco Use In Past 30 Days: No Smoking Status: Never smoker - Alcohol History How Often Do You Have a Drink Containing Alcohol: Never - Travel History History of Recent Travel: No Recent Travel in the [place] Within the Last 8 Weeks: No Recent Travel Out of the Country Within the Last 8 Weeks: No - Immunization History Tetanus Immunization: <5 Years Medications and Allergies Active Medications: Active Medications Aspirin (Aspirin) 325 mg PO DAILY YUKI Clopidogrel Bisulfate (Plavix) 75 mg PO DAILY YUKI Sodium Chloride (Ns Inj) 500 mls @ 85 mls/hr IV.CONT .[id number] YUKI Allergies Allergy/AdvReac Type Severity Reaction Status Date / Time diatrizoate meglumine Allergy Intermediate Verified 10/25/17 01:13 gadobenic acid Allergy Intermediate Verified 10/25/17 01:13 gadodiamide Allergy Intermediate Verified 10/25/17 01:13 gadoteridol Allergy Intermediate Verified 10/25/17 01:13 iodixanol Allergy Intermediate Verified 10/25/17 01:13 iohexol Allergy Intermediate Verified 10/25/17 01:13 penicillin G Allergy Intermediate Verified 10/25/17 01:13 Home Medications Medication Instructions Recorded Confirmed Type aspirin 11/28/17 History carvedilol [Coreg] 12.5 mg PO BID 11/28/17 11/28/17 History donepezil [Aricept] See Label Instructions .ROUTE 11/28/17 11/28/17 History .COMPLEX levetiracetam [Keppra] 11/28/17 History levothyroxine [Synthroid] 150 mcg PO DAILY 11/28/17 11/28/17 History memantine [Namenda] 11/28/17 History methenamine mandelate See Label Instructions .ROUTE 11/28/17 History .COMPLEX mirtazapine [Remeron] 7.5 mg PO DAILY 11/28/17 11/28/17 History pantoprazole [Protonix] 40 mg PO DAILY 11/28/17 11/28/17 History simvastatin 10 mg PO QPM 11/28/17 11/28/17 History sitagliptin [Januvia] 100 mg PO DAILY 11/28/17 11/28/17 History valsartan 160 mg PO BID 11/28/17 11/28/17 History Exam Vital signs: Vital Signs 11/28/17 12:26 11/28/17 12:41 11/28/17 14:15 Temperature 98.1 F Pulse Rate 84 84 74 Respiratory Rate 18 18 Blood Pressure 192/75 H 168/74 H 204/91 H Pulse Oximetry 100 96 11/28/17 15:14 Temperature Pulse Rate 80 Respiratory Rate 18 Blood Pressure 189/86 H Pulse Oximetry 95 Intake & Output 11/27/17 11/28/17 11/28/17 18:59 06:59 18:59 Weight 81.647 kg Narrative: GENERAL: Well-nourished, well-developed adult female in no obvious distress. SKIN: Warm and dry. HEAD: Atraumatic. Normocephalic. CARDIOVASCULAR: Regular rate and rhythm. Pacemaker palpable in left chest wall. RESPIRATORY: No accessory muscle use. Clear to auscultation. Breath sounds equal bilaterally. GASTROINTESTINAL: Abdomen soft, non-tender, distended. Positive bowel sounds. MUSCULOSKELETAL: Extremities without clubbing, cyanosis, or edema. No obvious deformities. NEUROLOGICAL: Awake and alert. No obvious cranial nerve deficits. Motor grossly within normal limits. Normal speech. PSYCHIATRIC: Appropriate mood and affect; insight and judgment adequate. Results - Labs CBC & Chem 7: 11/28/17 14:50 11/28/17 14:50 Labs: Laboratory Results - last 24 hr 11/28/17 11/28/17 11/28/17 14:50 14:50 14:50 WBC 10.6 RBC 4.76 Hgb 13.8 Hct 40.8 MCV 85.8 MCH 29.0 MCHC 33.8 RDW 14.9 Plt Count 204 MPV 8.1 Neut % (Auto) 56.8 Lymph % (Auto) 27.6 Mcminn % (Auto) 8.4 H Eos % (Auto) 6.6 H Baso % (Auto) 0.6 Neut # (Auto) 6.0 Lymph # (Auto) 2.9 Mcminn # (Auto) 0.9 Eos # (Auto) 0.7 H Baso # (Auto) 0.1 WBC Differential . Differential Comment Auto diff final PT 10.4 INR 1.0 APTT 24.4 Sodium 136 Potassium 4.1 Chloride 101 Carbon Dioxide 27.0 Anion Gap 8 BUN 11 Creatinine 0.95 Estimated GFR 56 L Random Glucose 199 H Calcium 8.8 Total Bilirubin 0.3 AST 32 ALT 39 Alkaline Phosphatase 66 Total Protein 7.4 Albumin 3.5 - Imaging Impressions Head CT 11/28/17 13:00 CONCLUSION: 1. No acute infarct, acute hemorrhage, midline shift or extra-axial fluid collections. 2. 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 3. Encephalomalacia involving the left temporal lobe. 4. Mild central cerebral atrophy. 5. No significant change compared to 08/19/2015. . Caprini VTE Risk Assessment Caprini VTE Risk Assessment: Moderate/High Risk (score >= 2) Caprini Risk Assessment Model: Point Value = 1 Point Value = 2 Point Value = 3 Point Value = 5 Age 41-60 Minor surgery BMI > 25 kg/m2 Swollen legs Varicose veins or History of unexplained or recurrent spontaneous Oral contraceptives or hormone replacement Sepsis (< 1 month) Serious lung disease, including pneumonia (< 1 month) Abnormal pulmonary function Acute myocardial infarction Congestive heart failure (< 1 month) History of inflammatory bowel disease Medical patient at bed rest Age 61-74 Arthroscopic surgery Major open surgery (> 45 min) Laparoscopic surgery (> 45 min) Malignancy Confined to bed (> 72 hours) Immobilizing plaster cast Central venous access Age >= 75 History of VTE Family history of VTE Factor V Leiden Prothrombin [id number] Lupus anticoagulant Anticardiolipin antibodies Elevated serum homocysteine Heparin-induced thrombocytopenia Other congenital or acquired thrombophilia Stroke (< 1 month) Elective arthroplasty Hip, pelvis, or leg fracture Acute spinal cord injury (< 1 month) Prophylaxis Regimen: Total Risk Factor Score Risk Level Prophylaxis Regimen 0-1 Low Early ambulation 2 Moderate Order ONE of the following: *Sequential Compression Device (SCD) *Heparin 5000 units SQ BID 3-4 Higher Order ONE of the following medications: *Heparin 5000 units SQ TID *Enoxaparin/Lovenox 40 mg SQ daily (WT < 150 kg, CrCl > 30 mL/min) *Enoxaparin/Lovenox 30 mg SQ daily (WT < 150 kg, CrCl > 10-29 mL/min) *Enoxaparin/Lovenox 30 mg SQ BID (WT < 150 kg, CrCl > 30 mL/min) AND/OR *Sequential Compression Device (SCD) 5 or more Highest Order ONE of the following medications: *Heparin 5000 units SQ TID (Preferred with Epidurals) *Enoxaparin/Lovenox 40 mg SQ daily (WT < 150 kg, CrCl > 30 mL/min) *Enoxaparin/Lovenox 30 mg SQ daily (WT < 150 kg, CrCl > 10-29 mL/min) *Enoxaparin/Lovenox 30 mg SQ BID (WT < 150 kg, CrCl > 30 mL/min) AND *Sequential Compression Device (SCD) Assessment and Plan - Plan Patient is an 87-year-old female who presented to the ED with a complaint of 2 episodes of double vision. PMH= DM 2, hypertension, hyperlipidemia, hypothyroidism, PVD and pacemaker placement. LE DVT approximately 1-2 years ago - currently on ASA 81 mg only. Hx of cerebral aneurysm with failed attempted coiling -this caused a rupture of the aneurysm and intracranial hemorrhage which resulted in a very prolonged hospitalization and recovery in 2003. As a result of this she does have some memory problems and a history of seizures although she denies any recent episodes. TIA -suspected -Neurology consulted; appreciate assistance. Seen by Dr. Monterroso-he has added Plavix and ASA 325mg. Also has planned EEG and will be increasing her Keppra dose. Heart disease/pacemaker -Consult placed to Dr. Melendez; appreciate assistance -We will rule out A. fib Hypertension -Continue Coreg and valsartan Hypothyroid -Continue Synthroid Hyperlipidemia -Continue statin Diabetes -Sliding scale insulin ordered -Diabetic diet Seizures -We will defer management of sz/neuro medications to neurology History of DVT -Not currently on anticoagulation at home other than ASA 81. DVT prophylaxis: On ASA and Plavix. Patient is ambulatory. Discussed with: Patient, nurse, , daughter, Dr. Monterroso, Dr. Will
[2017-11-28] MEDS ORDERED: Bisacodyl 10 MG Supp RECTAL PRN (17:05)
--- NOTE | 2017-11-28 17:14 | MB ---
cc: Fernando Monterroso MD DATE: 11/28/2017 HISTORY OF PRESENT ILLNESS: An 87-year-old right handed woman, with a history of hypertension, non-insulin dependent diabetes, hypercholesterolemia, pacemaker, sees Dr. Melendez. She takes 81 mg of aspirin b.i.d. History of deep venous thrombosis about a year and a half ago. She has stroke and evidently an aneurysm 14 years ago. Her memory has been poor ever since, not worse in the last 2 years according to her . She had double vision onset this morning for about 30 minutes. If she covered one eye it went away or the other eye it went away. No darkness of the vision. No headache. Then it went away after about 30 minutes, went away for about 30 minutes, then came back again and lasted about 20 minutes. No asymmetrical weakness, numbness, slurred speech, no vision loss. No paralysis. She has never had it before. No trouble swallowing. Initially, the family denied seizures, but when the told me she was on Keppra, they said maybe it was a seizure a few years ago. The patient sees Dr. Sousa has a neurologist. SOCIAL HISTORY: Not a smoker or drinker, lives with her . FAMILY HISTORY: Negative for cancer, seizure or stroke. REVIEW OF SYSTEMS: No history of known atrial fibrillation, renal, hepatic, pulmonary disease, thyroid disease, lupus, ulcer, cancer, seizure. MEDICATIONS AT HOME: She is on valsartan, thyroid medicine, simvastatin, Protonix, Remeron 7.5 a day, Januvia, Aricept, carvedilol, Namenda, Keppra, aspirin, as noted. PAST MEDICAL HISTORY: Reviewing the old records here at [facility], she saw Dr. Serna back in 2009. He noted in 2004, she had a cerebral aneurysm, had a complicated core procedure with a stroke infarct with that, was comatose for a few weeks. She had a witnessed seizure at that time. Her having come upon her in the bathroom lying prone, heard her to vocalize and repetitive from the other room. She was shaking, what sounds like a grand mal seizure and she was confused for about 2 minutes. She was loaded with Dilantin. At that time she was on Aricept. He put her on Dilantin at that time. She had an EEG at that time, occasional sharps in the left T3. In the past she had normal B12 levels, methylmalonic acids have been normal in the past. Thyroid has been slightly abnormal. On exam she has been in sinus rhythm and paced here. PHYSICAL EXAMINATION: VITAL SIGNS: Afebrile, 84, 18, 192/75. As high as 204/91 and 189/86. NECK: There were no carotid or vertebral bruits. HEART: Regular rhythm. I do not detect a murmur. NEUROLOGIC: Pupils are equal. Visual hernandez are full. Extraocular movement intact without nystagmus. Face symmetric with normal sensation. Tongue was midline. There is no drift. She had normal strength in upper and lower extremities bilaterally. DTRs are trace throughout. Toes are downgoing bilaterally. Pinprick is intact throughout. Not ataxic on [id number] or [id number]. She does not know the year, she was 1 off on the month. She could not remember the year. She did remember the month. She does know her address. LABORATORY DATA: CBC is normal. Basic metabolic profile was normal. Glucose 199. LFTs are normal. Albumin, coags all normal. IMAGING STUDIES: She had a CAT scan of her brain here that showed some old strokes bilaterally and encephalomalacia left temporal lobe. On review of the films, it is possibly an old right cerebellar infarct. There is a metal artifact around the left MCA region, some changes of the left medial temporal lobe, fairly large. She had a carotid ultrasound done in 2010 that was negative. 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 IMPRESSION AND RECOMMENDATIONS: Some transient double vision that occurred twice. Possibilities would include a TIA and I am going to add on Plavix at this time. We will do a CTA of the neck and [place] of [place], keep her on IV fluids. A small seizure could be considered, although it would be an unusual presentation for that. We will check an EEG and consider increasing her Keppra dose. Myasthenia gravis could be considered, but no history of anything similar to that but we will check some labs. A transient 6th nerve palsy or other cranial nerve palsy could be considered with the diabetes, although in my experience unusual that it would be transient. She looks back to normal now. I will be following her with you in the hospital. Severe thyroid disease could be considered but I think unlikely. I note her temples are nontender and there is no history of headaches. I think temporal arteritis also unlikely, but we will check a sedimentation rate. We will have her pacemaker interrogated for any A-fib and have Dr. Melendez see her in case there is any history of A-fib. MD ELISEO Lewis/MARIMAR , 04:46 PM , 05:13 PM
--- NOTE | 2017-11-28 17:30 | XR ---
EXAM DATE: 11/28/2017 5:27 PM EDT AGE/SEX: 87 years / Female INDICATIONS: TIA symptoms. CLINICAL DATA: This is the patient's initial encounter. Patient reports that signs and symptoms have been present for 1 day and indicates a pain score of 0/10. MEDICAL/SURGICAL HISTORY: Cardiovascular disease. Hypertension. Pacemaker. COMPARISON: PO[facility], XR CHEST PA AND LAT, 12/15/2015. . FINDINGS: A single AP view of the chest demonstrates the lungs to be symmetrically aerated without evidence of mass, infiltrate or effusion. The cardiomediastinal contours are unremarkable. Osseous structures a re intact. A left subclavian A-V sequential transvenous pacer is again noted. There are multiple ove rlying electrocardiogram leads. Mild atherosclerotic changes are present in the aorta. CONCLUSION: Stable exam with no acute cardiopulmonary disease. Electronically signed by: Jules Young MD 11/28/2017 5:29 PM EDT
[2017-11-28 17:43] LABS: T4 (Thyroxine) 11.8 mcg/dL (4.8-13.9)
[2017-11-28] MEDS: Aspirin 325 MG Tablet PO SCH (17:48)
[2017-11-28] MEDS ORDERED: Dextrose 50% in Water 50 ML Vial IV.PUSH PRN (19:13)
[2017-11-28] MEDS: Sodium Chlor 0.9% Inj 500 ML IV.CONT SCH (19:38)
[2017-11-28] MEDS: Insulin NovoLOG Aspart Correctional Sugar Inj SQ SCH (20:20)
[2017-11-28] MEDS: levETIRAcetam 500 MG Tablet PO SCH (20:21)
[2017-11-28] MEDS: Mirtazapine 15 MG Tablet PO SCH (20:22)
[2017-11-28] MEDS: Carvedilol 12.5 MG Tablet PO SCH (20:23)
[2017-11-28] MEDS: Senna/Docusate Sodium 8.6/50 MG Tablet PO SCH (20:24)
[2017-11-28] MEDS ORDERED: levETIRAcetam 500 MG Tablet PO SCH (21:00)
[2017-11-28] MEDS ORDERED: Carvedilol 12.5 MG Tablet PO SCH (21:00)
--- NOTE | 2017-11-28 21:14 | MH ---
cc: Mauricio Munoz MD DATE OF ADMISSION: 11/28/2017 ADMITTING DIAGNOSIS: Transient ischemic attack, possible cerebrovascular accident. HISTORY OF PRESENT ILLNESS: This 87-year-old white female well known to the undersigned physician has an extensive past medical history including a previous cerebral hemorrhage following a coil procedure of an cerebral aneurysm. The patient was in her usual state of health until the morning of admission, when it was noticed by her cut out worker that her right eye was turning outward. The patient reported double vision. The cut out worker contacted the patient's daughter, who is a physician, and she was instructed to contact EMS. The EMS arrived to the home. However, by then, the visual disturbance and the out-turning eye had resolved. The patient did not want to go to the emergency department. It was felt that she could be evaluated on an outpatient basis. However, a little while later, the patient had another episode of the same visual disturbance and obvious right-sided esotropia with ptosis. The caregiver contacted the patient's daughter again. At that time, EMS was summoned again and the patient was transferred to this facility for further evaluation and treatment. By the time she arrived to the emergency department, her symptoms had resolved once again. The patient has had some posterior headaches recently, but they have not been severe. She has had no other visual disturbance. The patient has no history of significant carotid disease. She has had no history of any vertebrobasilar insufficiency. She does have a history of seizures that occurred following the aneurysm surgery and the cerebral hemorrhage, but she has been on Keppra for many years. She does have a remote history of atrial fibrillation, but has been in sinus rhythm for years. She currently only takes aspirin 81 mg daily. The patient, at the current time, denies any chest pain, shortness of breath, palpitations, lightheadedness, dizziness, nausea, vomiting, abdominal pain. She states that her bowels have been moving well. She has had no urinary urgency, frequency, dysuria. She has had no numbness or tingling in the hands or feet or weakness in the upper or lower extremities. The patient does have a history of dementia, so her history is somewhat limited, however, her daughter, who is present, is helping to fill in some of the history. 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 The patient had a prolonged hospitalization and recovery. She does have dementia, chronic low back pain due to lumbar spondylosis. She has a seizure disorder following the cerebral hemorrhage. She has a history of urinary tract infections, but it has resolved since being placed on prophylactic regimen. She does have a history of iron deficiency anemia, which has since resolved with iron supplement. She has a history of hemorrhoids. She does have a history of gastroesophageal reflux disease. PAST SURGICAL HISTORY: Includes status post hysterectomy, status post pacemaker placement for which she sees Dr. Melendez. She had a tracheostomy and PEG tube placed in 2003 following her cerebral aneurysm. They both have been subsequently removed. She is status post bilateral cataract removal with lens implants. CURRENT MEDICATIONS: Namenda 10 mg twice daily, Synthroid 150 mcg daily, Actos 15 mg daily, glimepiride 2 mg twice daily, vitamin C 1000 mg daily, Januvia 100 mg daily, mirtazapine 7.5 mg at bedtime, simvastatin 10 mg daily, D-Mannose 500 mg twice daily, valsartan 160 mg daily, carvedilol 12.5 mg, 2 tablets in the morning, 1 tablet in the evening, aspirin 81 mg daily, methenamine hippurate 1 gram twice daily, pantoprazole 40 mg daily, Keppra 500 mg 2 tablets in the morning, 1 tablet midday and 2 tablets at bedtime, Aricept 10 mg at bedtime, vitamin D 1000 international units daily, vitamin B12 1000 mcg daily and Citrucel 500 mg tablets, 1 tablet daily with 8 ounces of liquid. ALLERGIES: SHE HAS AN ALLERGY TO IV CONTRAST AND PENICILLIN. FAMILY HISTORY: Noncontributory. SOCIAL HISTORY: She is , retired, lives with her . She did smoke in the remote past. She does not regularly consume alcohol at this time. REVIEW OF SYSTEMS: Negative except as outlined above. IMMUNIZATION HISTORY: The patient is up-to-date with her influenza vaccination, which was given in 02/2017 and her pneumococcal vaccination was given in 11/2005. PHYSICAL EXAMINATION: VITAL SIGNS: Upon arrival to the emergency department, the patient's blood pressure was 192/75, with a heart rate of 84, respirations 18, temperature 98.1 degrees Fahrenheit, oxygen saturation on room air was 100%. At the current time, the patient's blood pressure is 176/72, with a heart rate of 78, respirations are 14, temperature 98.2 degrees Fahrenheit. GENERAL: This is an overweight, elderly, white female sitting up in bed, in no acute distress. HEENT: Pupils equal, round, reactive to light. Extraocular movements are intact. Sclerae anicteric. Conjunctivae are pink. Bilateral lens implants in place. Nares patent, with discharge. Mouth revealed moist mucous membranes. No erythema or exudates. NECK: Supple, without lymphadenopathy, JVD, bruits or thyromegaly. CARDIOVASCULAR: Regular rate and rhythm, without murmurs, rubs or gallops. LUNGS: Clear to auscultation, without wheeze, rhonchi or rales. ABDOMEN: Obese, soft, nontender, nondistended, with bowel sounds present. No mass palpable. No hepatosplenomegaly. GENITOURINARY AND RECTAL: Deferred. LOWER EXTREMITIES: Reveal intact distal pulses. No calf tenderness. No Yadira's sign. No edema. No open areas, no bony deformities. SKIN: Warm and dry. NEUROLOGIC: The patient is awake and alert, oriented to person and place, but not to time. Speech is intact. Cranial nerves intact. No lateralizing deficits. Downgoing toes bilaterally. Speech: The patient has some mild short-term memory deficits, which is her baseline, but no delusions or hallucinations. Mood: Good. Affect appropriate. LABORATORY DATA: The comprehensive metabolic profile was significant only for a glucose of 199. The B12 level was 1592. TSH normal at 1.4, T4 normal at 11.8. CRP normal at less than 0.29. The INR was 1.0, APTT 24.4. The CBC revealed a white blood count of 10.6, hemoglobin 13.8, hematocrit 40.8, platelet count 204,000. IMAGING: A noncontrast CT scan of the head revealed no acute infarct, hemorrhage, midline shift or extraaxial fluid collection. Scattered old lacunar infarcts in the bilateral basal ganglia and cerebellar hemispheres. Encephalomalacia involving the left temporal lobe. Mild central cerebral atrophy. No significant change since 08/2015. The chest x-ray, which was a single AP film, revealed a stable chest, with no acute cardiopulmonary disease. IMPRESSION AND PLAN: 1. This 87-year-old white female presented with 2 episodes of visual disturbance with ptosis and esotropia of the right eye, which is highly suspicious for a transient ischemic attack of the brainstem, involving the cranial nerves. The patient has been seen in consultation by Dr. Monterroso for Neurology. She has ordered a CTA of the [place] and the carotid arteries. THE PATIENT HAS AN IV CONTRAST ALLERGY, so she will need to be premedicated prior to the procedure. She is currently stable. He has added Plavix 75 mg daily. We will monitor neurologic status closely. If any recurrent symptoms, we will need to address acutely. Possible etiologies for the presenting symptoms include TIA due to a plaque embolus versus atrial fibrillation, with embolism versus atypical presentation of a seizure versus myasthenia gravis versus temporal arteritis. So far, laboratory studies have ruled out temporal arteritis with a normal sedimentation rate. Myasthenia gravis panel is pending. We will followup the CTAs that her ordered. EEG has been ordered to rule out the possibility of seizure disorder. The patient will be continued with her Keppra as usual. The patient will be placed on a higher dosage of aspirin at 325 mg daily. The patient does have a pacemaker in place. Dr. Monterroso has consulted Dr. Melendez, the patient's cafe helper, for assistance with interrogating the pacemaker to determine if the patient had any significant arrhythmia, including atrial fibrillation. If so, the patient would need to be on more aggressive anticoagulation. 2. History of hypertension. Blood pressure is elevated at this time, but the patient did not receive any of her medications today. I will order her usual medications of valsartan and carvedilol. The patient should be receiving her evening dose of carvedilol soon and will provide valsartan, as she has not yet received it today. We will monitor blood pressure closely. If necessary, we will adjust antihypertensive therapy. 3. Diabetes. The patient did not receive any of her oral hypoglycemic medications today. We will provide her with frequent blood glucose monitoring and a sliding scale of NovoLog insulin as needed. We will resume glimepiride, pioglitazone and Januvia. The patient's glucose levels will likely be elevated due to the premedication with prednisone prior to the radiology procedures. She will be placed on a diabetic diet. 4. Dementia. The patient will continue with Namendacarizapine and donepezil. Mental status is stable. Monitor for any signs of acute delirium. 5. Hyperlipidemia. The patient normally takes simvastatin. She will be changed to pravastatin due to hospital formulary. We will resume simvastatin at time of discharge. 6. Gastroesophageal reflux disease. The patient will continue with pantoprazole 40 mg daily. Currently asymptomatic. 7. Hypothyroidism. TSH is therapeutic. Continue with current dosage of Synthroid. I have explained the patient's condition and plan of care at both the patient and her daughter, who is at bedside, both expressed understanding and agreement. MD MARK Orta/LUDY , 07:36 PM , 09:12 PM
[2017-11-29] MEDS: Sodium Chlor 0.9% Inj 500 ML IV.CONT SCH ×4 (02:07→17:56)
[2017-11-29] MEDS ORDERED: Levothyroxine 150 MCG Tablet PO SCH (06:00)
--- NOTE | 2017-11-29 08:08 | P.PNNEU ---
Subjective Subjective Comments: No acute events reported No headache No chest pain No dyspnea no diplopia sr Active Medications: Active Medications Al Hydroxide/Mg Hydroxide (Milk Of Magnesia Liq) 30 ml PO Q12H PRN PRN Reason: Mild Constipation Aspirin (Aspirin) 325 mg PO DAILY [facility] Last Admin: 11/28/17 17:48 Dose: Not Given Bisacodyl (Dulcolax Supp) 10 mg RECTAL DAILY PRN PRN Reason: SEVERE CONSITIPATION Carvedilol (Coreg) 12.5 mg PO HS [facility] Last Admin: 11/28/17 20:23 Dose: 12.5 mg Carvedilol (Coreg) 25 mg PO DAILY [facility] Clonidine HCl (Catapres) 0.1 mg PO Q6H PRN PRN Reason: SYS BP GREATER THAN 160 [facility] Last Admin: 11/28/17 21:20 Dose: 0.1 mg Clopidogrel Bisulfate (Plavix) 75 mg PO DAILY [facility] Last Admin: 11/28/17 19:36 Dose: 75 mg Dextrose (D50w Vial) 50 ml IV.PUSH UNSCH PRN PRN Reason: PER HYPOGLYCEMIA PROTOCOL Donepezil HCl (Aricept) 10 mg PO [facility] Last Admin: 11/28/17 20:24 Dose: 10 mg Glimepiride (Amaryl) 2 mg PO BIDAC [facility] Glucagon (Glucagon Inj) 1 mg OTHER PRN PRN PRN Reason: for Hypoglycemia Protocol Sodium Chloride (Ns Inj) 500 mls @ 85 mls/hr IV.CONT .Q5H53M [facility] Last Admin: 11/29/17 06:07 Dose: 85 mls/hr Insulin Aspart (Novolog Insulin [place] Sugar Inj) 0 unit SQ ACHS [facility]; Protocol Last Admin: 11/28/17 20:20 Dose: 7 unit Lactulose (Lactulose Liq) 30 ml PO DAILY PRN PRN Reason: SEVERE CONSITIPATION Levetiracetam (Keppra) 500 mg PO DAILY@1300 [facility] Levetiracetam (Keppra) 1,000 mg PO BID [facility] Last Admin: 11/28/17 20:21 Dose: 1,000 mg Levothyroxine Sodium (Synthroid) 150 mcg PO DAILY@0600 [facility] Last Admin: 11/29/17 06:04 Dose: 150 mcg Memantine (Namenda) 10 mg PO BID [facility] Last Admin: 11/28/17 20:24 Dose: 10 mg Mirtazapine (Remeron) 7.5 mg PO HS [facility] Last Admin: 11/28/17 20:22 Dose: 7.5 mg Ondansetron HCl (Zofran Odt) 4 mg PO Q6H PRN PRN Reason: NAUSEA OR VOMITING Pantoprazole Sodium (Protonix) 40 mg PO DAILY [facility] Pioglitazone HCl (Actos) 15 mg PO DAILYAC [facility] Last Admin: 11/29/17 06:04 Dose: 15 mg Pravastatin Sodium (Pravachol) 20 mg PO QPM [facility] Last Admin: 11/28/17 20:21 Dose: 20 mg Senna/Docusate Sodium (Grace-Colace) 1 tab PO BID [facility] Last Admin: 11/28/17 20:24 Dose: Not Given Sennosides (Senokot) 17.2 mg PO Q12H PRN PRN Reason: Moderate Constipation Sitagliptin Phosphate (Januvia) 100 mg PO DAILY [facility] Valsartan (Diovan) 160 mg PO DAILY [facility] Allergies/Adverse Reactions: Allergies Allergy/AdvReac Type Severity Reaction Status Date / Time diatrizoate meglumine Allergy Intermediate Verified 10/25/17 01:13 gadobenic acid Allergy Intermediate Verified 10/25/17 01:13 gadodiamide Allergy Intermediate Verified 10/25/17 01:13 gadoteridol Allergy Intermediate Verified 10/25/17 01:13 iodixanol Allergy Intermediate Verified 10/25/17 01:13 iohexol Allergy Intermediate Verified 10/25/17 01:13 penicillin G Allergy Intermediate Verified 10/25/17 01:13 Physical Exam Vital signs: Vital Signs 11/28/17 12:26 11/28/17 12:41 11/28/17 14:15 Temperature 98.1 F Pulse Rate 84 84 74 Respiratory Rate 18 18 Blood Pressure 192/75 H 168/74 H 204/91 H Pulse Oximetry 100 96 11/28/17 15:14 11/28/17 18:18 11/28/17 19:56 Temperature 98.2 F Pulse Rate 80 78 85 Respiratory Rate 18 14 Blood Pressure 189/86 H 176/72 H Pulse Oximetry 95 94 L 11/28/17 20:00 11/28/17 23:59 11/29/17 00:32 Temperature 98.5 F Pulse Rate 79 73 77 Respiratory Rate 17 17 Blood Pressure 197/88 H 156/70 H Pulse Oximetry 97 96 11/29/17 03:42 11/29/17 03:50 11/29/17 07:51 Temperature 98.4 F 97.7 F Pulse Rate 86 87 84 Respiratory Rate 17 14 Blood Pressure 139/66 148/72 H Pulse Oximetry 93 L 94 L Intake & Output 11/28/17 11/29/17 11/29/17 18:59 06:59 18:59 Intake Total 500 / 500 Balance 500 / 500 Weight 81.647 kg Intake: IV 500 / 500 NS Inj 500 ML @ 85 mls/hr IV. 500 / 500 CONT .Q5H53M [facility] Rx#:[id number] Other: # Voids 5 Date of Last Bowel Movement 11/28/17 # Bowel Movements 1 Narrative: vff face sym /5 t/o eomi no diplopia Objective Laboratory Results - last 24 hr 11/28/17 11/28/17 11/28/17 14:50 14:50 14:50 WBC 10.6 RBC 4.76 Hgb 13.8 Hct 40.8 MCV 85.8 MCH 29.0 MCHC 33.8 RDW 14.9 Plt Count 204 MPV 8.1 Neut % (Auto) 56.8 Lymph % (Auto) 27.6 [place] % (Auto) 8.4 H Eos % (Auto) 6.6 H Baso % (Auto) 0.6 Neut # (Auto) 6.0 Lymph # (Auto) 2.9 [place] # (Auto) 0.9 Eos # (Auto) 0.7 H Baso # (Auto) 0.1 WBC Differential . Differential Comment Auto diff final ESR PT 10.4 INR 1.0 APTT 24.4 Sodium 136 Potassium 4.1 Chloride 101 Carbon Dioxide 27.0 Anion Gap 8 BUN 11 Creatinine 0.95 Estimated GFR 56 L POC Glucose Random Glucose 199 H Calcium 8.8 Total Bilirubin 0.3 AST 32 ALT 39 Alkaline Phosphatase 66 C-Reactive Protein Total Protein 7.4 Albumin 3.5 Vitamin B12 TSH Thyroxine (T4) 11/28/17 11/28/17 11/28/17 14:50 14:50 14:50 WBC RBC Hgb Hct MCV MCH MCHC RDW Plt Count MPV Neut % (Auto) Lymph % (Auto) [place] % (Auto) Eos % (Auto) Baso % (Auto) Neut # (Auto) Lymph # (Auto) [place] # (Auto) Eos # (Auto) Baso # (Auto) WBC Differential Differential Comment ESR 9 PT INR APTT Sodium Potassium Chloride Carbon Dioxide Anion Gap BUN Creatinine Estimated GFR POC Glucose Random Glucose Calcium Total Bilirubin AST ALT Alkaline Phosphatase C-Reactive Protein Less than 0.29 Total Protein Albumin Vitamin B12 1592 H TSH 1.400 Thyroxine (T4) 11.8 11/28/17 11/29/17 11/29/17 20:15 06:02 07:54 WBC RBC Hgb Hct MCV MCH MCHC RDW Plt Count MPV Neut % (Auto) Lymph % (Auto) [place] % (Auto) Eos % (Auto) Baso % (Auto) Neut # (Auto) Lymph # (Auto) [place] # (Auto) Eos # (Auto) Baso # (Auto) WBC Differential Differential Comment ESR PT INR APTT Sodium Potassium Chloride Carbon Dioxide Anion Gap BUN Creatinine Estimated GFR POC Glucose 256 H 278 H 308 H Random Glucose Calcium Total Bilirubin AST ALT Alkaline Phosphatase C-Reactive Protein Total Protein Albumin Vitamin B12 TSH Thyroxine (T4) Review/Management - Review/Management Plan: imp no new spells franz neg labs ok fu ldl eeg echo and cta today and if neg and eeg done and cards clears then could dc on plavix await cards to interrogate pacer for any afib mg labs pend unclear etiology
[2017-11-29 08:21] LABS: Calcium 9.1 mg/dL (8.5-10.1); Potassium 3.8 meq/L (3.5-5.1)
[2017-11-29] MEDS: Senna/Docusate Sodium 8.6/50 MG Tablet PO SCH ×2 (08:21→21:47)
[2017-11-29] MEDS: levETIRAcetam 500 MG Tablet PO SCH ×2 (08:22→21:41)
[2017-11-29] MEDS: Aspirin 325 MG Tablet PO SCH (08:24)
[2017-11-29] MEDS: Glimepiride 2 MG Tablet PO SCH ×2 (08:25→16:15)
[2017-11-29] MEDS: Insulin NovoLOG Aspart Correctional Sugar Inj SQ SCH ×5 (08:25→21:47)
[2017-11-29] MEDS ORDERED: Carvedilol 12.5 MG Tablet PO SCH (09:00)
--- NOTE | 2017-11-29 10:16 | US ---
EXAM DATE: 11/29/2017 10:04 AM EDT AGE/SEX: 87 years / Female INDICATIONS: Transient ischemic attack. CLINICAL DATA: This is the patient's initial encounter. Patient reports that signs and symptoms have been present for 1 day and indicates a pain score of 0/10. MEDICAL/SURGICAL HISTORY: Gastroesophageal reflux disease. Hypertension. Aneurysm. Dementia. D iabetes. Deep vein thrombosis. Seizures. Hyperlipidemia. Appendectomy. COMPARISON: No prior exams available for comparison. VELOCITY PARAMETERS: ICA/CCA Ratio: Right 1.39 , Left 1.14 ICA: Right 89 cm/sec, Left 72 cm/sec CCA: Right 64 cm/sec, Left 63 cm/sec ECA: Right 109 cm/sec, Left 98 cm/sec Vertebral: Right 54 cm/sec antegrade, Left 51 cm/sec antegrade FINDINGS: Right Carotid: No significant plaque is visualized.The waveforms are within normal limits. Left Carotid: Mild arteriosclerotic plaque is visualized. The waveforms are within normal limits. Other: None. CONCLUSION: Mild plaquing in the left carotid system with no evidence of a hemodynamically significan t lesion. Electronically signed by: Jules Young MD 11/29/2017 10:15 AM EDT
--- NOTE | 2017-11-29 11:00 | ECG ---
Date Performed: 11/28/2017 Time Performed: 15:52:47 PTAGE: 87 years EKG: Sinus rhythm MARKED LEFT AXIS DEVIATION PATTERN CONSISTENT WITH PULMONARY DISEASE INCOMPLETE RIGHT BUNDLE BRANCH BLOCK LEFT VENTRICULAR HYPERTROPHY AND ST-T CHANGE ABNORMAL ECG PREVIOUS TRACING : 10/25/2017 01.43 DOCTOR: Alexander Knowles Interpretating Date/Time 11/29/2017 11:00:13
[2017-11-29 11:38] LABS: Chol/HDL Ratio 2.63 Ratio; HDL Cholesterol 66.4 mg/dL (40.0-60.0)
--- NOTE | 2017-11-29 11:39 | CT ---
EXAM DATE: 11/29/2017 11:21 AM EDT AGE/SEX: 87 years / Female INDICATIONS: Dizziness. CLINICAL DATA: This is the patient's initial encounter. Patient reports that signs and symptoms have been present for 2 days and indicates a pain score of 0/10. MEDICAL/SURGICAL HISTORY: Diabetes mellitus type II. Cardiovascular disease. Peripheral vascular disease. Hypertension. Cerebral aneurysm. Seizure. Pacemaker. Hysterectomy. Appendectomy. Cerebr al aneurysm clipping RADIATION DOSE: 27.05 CTDI (mGy) ; Combined studies Patient was premedicated per protocol for underlying contrast media allergy. COMPARISON: [facility], CT HEAD W/O CONTRAST, 11/28/2017. [facility], CT BRAIN W/O CONTRAST, 08/19/2015. . TECHNIQUE: Volumetric scanning was performed using a multi-row detector CT scanner during bolus infu yarelis of 75 ml Omnipaque 350 (iohexol) nonionic water-soluble contrast as a cumulative dose for multi ple exams. The data was post processed with a variety of visualization algorithms including full vo lume maximum intensity projection, multi-planar sliding thin slab reformation, curved planar reformat ion, and surface rendering techniques. Using automated exposure control and adjustment of the mA and /or kV according to patient size, radiation dose was kept as low as reasonably achievable to obtain o ptimal diagnostic quality images. DICOM format image data is available electronically for review and comparison. FINDINGS: There is excellent visualization of the major intracranial arteries out to the second-order branch ve ssels. Extensive artifact is noted in the region of the left posterior communicating artery related t o previous coil embolization. No new aneurysm is identified. No focal stenosis or occlusion involving the anterior or middle cerebral arteries. The right posterior cerebral artery is widely patent. Mild to moderate diffuse stenoses are noted throughout the left posterior cerebral artery. CONCLUSION: 1. Extensive artifact related to previous coil embolization in the expected region of the left poste rior communicating artery. 2. Mild to moderate diffuse stenoses throughout the left posterior cerebral artery. Electronically signed by: Dannie Nayak MD 11/29/2017 11:37 AM EDT
[2017-11-29] MEDS ORDERED: levETIRAcetam 500 MG Tablet PO SCH (13:00)
--- NOTE | 2017-11-29 14:08 | CT ---
EXAM DATE: 11/29/2017 11:52 AM EDT AGE/SEX: 87 years / Female INDICATIONS: Dizziness CLINICAL DATA: This is the patient's initial encounter. Patient reports that signs and symptoms have been present for 2 days and indicates a pain score of 0/10. MEDICAL/SURGICAL HISTORY: Cardiovascular disease. Diabetes. Hypertension. PVD Appendectomy. Hy sterectomy. Cerebral aneurysm clipping RADIATION DOSE: 27.05 CTDI (mGy) ; Combined studies Patient was premedicated per protocol for underlying contrast media allergy. COMPARISON: No prior exams available for comparison. TECHNIQUE: Volumetric scanning was performed using a multirow detector CT scanner during bolus infus ion of 75 ml Omnipaque 350 (iohexol) nonionic water-soluble contrast as a cumulative dose for multip le exams. The data was postprocessed with a variety of visualization algorithms including full-volu me maximum intensity projection, multiplanar sliding thin-slab reformation, curved-planar reformation , and surface-rendering techniques. Using automated exposure control and adjustment of the mA and/or kV according to patient size, radiation dose was kept as low as reasonably achievable to obtain opti mal diagnostic quality images. DICOM format image data is available electronically for review and co mparison. Elevated flow velocities and ICA/CCA ratios have been found to correlate with increased degrees of ve ssel stenosis, calculated as percentage of diameter relative to a normal segment of distal ICA/CCA. FINDINGS: Aortic Arch: There is a three-vessel origin of the great vessels from the aorta. No evidence of ost ial narrowing Right Carotid: The common carotid artery is intact. The carotid bulb has a normal configuration wit hout ulceration or narrowing. The internal carotid artery lumen is smooth without stenosis. The ext ernal carotid artery is intact. Left Carotid: The common carotid artery is intact. The carotid bulb has a normal configuration with out ulceration or narrowing. The internal carotid artery lumen is smooth without stenosis. The exte rnal carotid artery is intact. Vertebrals: The vertebral arteries have a symmetric diameter. No stenotic lesions are seen. A 4 mm nodule is seen within the left apex. CONCLUSION: 1. Patent carotid arteries and vertebral arteries bilaterally. 2. 4 mm nodule involving the left upper lobe. This is nonspecific in its CT appearance. Electronically signed by: Juan Gil MD 11/29/2017 2:07 PM EDT
--- NOTE | 2017-11-29 18:45 | MB ---
cc: Pedro Ellis MD, [place] MD DATE: 11/29/2017 HISTORY OF PRESENT ILLNESS: Ms. Montoya is an 87-year-old white female who presented after 2 episodes of double vision longer lasting for about 20 minutes. She has not had any other neurologic symptoms. She has not had any chest pain, shortness of breath, dizziness, palpitations or peripheral edema. She is a patient of Dr. Melendez. She has had a ruptured cerebral aneurysm and intracranial hemorrhage in 2003. She has remote history of seizures and also memory issue. She recently had several episodes of occipital headache. PAST MEDICAL HISTORY: Positive for intracranial aneurysm as above, DVT, mild dementia, diabetes mellitus, gastroesophageal reflux disease, dyslipidemia, seizure disorder, hypertension, history of appendectomy. MEDICATIONS: 1. Losartan. 2. Januvia. 3. Simvastatin. 4. Protonix. 5. Remeron. 6. Methenamine. 7. Namenda. 8. Synthroid. 9. Keppra. 10. Aricept. 11. Coreg. 12. Aspirin. ALLERGIES: PENICILLIN, IOHEXOL, GABABENIC ACID. SOCIAL HISTORY: The patient does not smoke. She does not drink alcohol. FAMILY HISTORY: Negative for heart disease. REVIEW OF SYSTEMS: Otherwise negative. PHYSICAL EXAMINATION: VITAL SIGNS: Blood pressure 170/77, pulse 92 and regular. HEENT: Negative. 2+ carotid upstrokes, no bruits. LUNGS: Clear. HEART: Regular with no murmur, gallop or rub. ABDOMEN: Soft. No bruits. EXTREMITIES: With trace edema. 2+ distal pulses. NEUROLOGIC: Grossly nonfocal. CARDIOLOGY STUDIES: EKG was reviewed and showed a normal sinus rhythm, left axis, left anterior fascicular block. Telemetry shows no runs of atrial fibrillation. LABORATORY DATA: Hemoglobin 13.8, potassium 3.8, creatinine 0.9. LDL 99, HDL 66. DIAGNOSES: 1. Transient ischemic attack. 2. Status post pacemaker placement for bradycardia. 3. Hypertension. 4. Hypothyroidism. 5. Dyslipidemia. 6. Diabetes mellitus. 7. Seizure disorder. DISPOSITION: Ms. Montoya has been monitored on telemetry. There is no evidence of atrial fibrillation. Her pacemaker was evaluated and no atrial fibrillation was recorded. I agree to continue current program with Plavix and aspirin as per Dr. Monterroso. I will follow Ms. Montoya for cardiology during her hospitalization. We will continue monitoring on telemetry. She will follow up with Dr. Melendez, her primary access tech, in his office after discharge. This was discussed with the patient and her family. MD SHANI Carranza/ , 05:54 PM , 06:43 PM ISREAL
--- NOTE | 2017-11-29 21:14 | P.PN ---
Subjective Interval history: Patient has been neurologically stable Physical Exam Vital signs: Vital Signs 11/28/17 23:59 11/29/17 00:32 11/29/17 03:42 Temperature 98.5 F 98.4 F Pulse Rate 73 77 86 Respiratory Rate 17 17 Blood Pressure 156/70 H 139/66 Pulse Oximetry 96 93 L 11/29/17 03:50 11/29/17 07:51 11/29/17 08:00 Temperature 97.7 F Pulse Rate 87 84 84 Respiratory Rate 14 Blood Pressure 148/72 H Pulse Oximetry 94 L 11/29/17 12:00 11/29/17 15:58 11/29/17 16:27 Temperature 97.5 F L 97.6 F Pulse Rate 86 92 H Respiratory Rate 16 16 Blood Pressure 162/70 H 170/77 H Pulse Oximetry 97 95 11/29/17 19:48 Temperature 97.5 F L Pulse Rate 83 Respiratory Rate 18 Blood Pressure 127/60 Pulse Oximetry 83 L Intake & Output 11/29/17 11/29/17 11/30/17 06:59 18:59 06:59 Intake Total 500 / 500 1000 / 1000 Balance 500 / 500 1000 / 1000 Intake: IV 500 / 500 1000 / 1000 NS Inj 500 ML @ 85 mls/hr IV. 500 / 500 1000 / 1000 CONT .[id number] [facility] Rx#:[id number] Other: # Voids 5 4 Date of Last Bowel Movement 11/28/17 11/29/17 # Bowel Movements 1 1 Narrative: General: Awake and alert. No acute distress. Cardiovascular: Regular rate and rhythm. Lungs: Clear to auscultation. Extremities: No edema, calf tenderness or Homans sign. Neurologic examination: Nonfocal. Mental status at baseline. Results - Labs CBC & Chem 7: 11/28/17 14:50 11/29/17 06:31 Laboratory Results - last 24 hr 11/29/17 11/29/17 11/29/17 06:02 06:31 06:31 Sodium 137 Potassium 3.8 Chloride 102 Carbon Dioxide 25.0 Anion Gap 10 BUN 13 Creatinine 0.91 Estimated GFR 59 L POC Glucose 278 H Random Glucose 279 H Calcium 9.1 Triglycerides 50 Cholesterol 175 LDL Cholesterol, Calc 99 HDL Cholesterol 66.4 H Cholesterol/HDL Ratio 2.63 11/29/17 11/29/17 11/29/17 07:54 11:37 17:02 Sodium Potassium Chloride Carbon Dioxide Anion Gap BUN Creatinine Estimated GFR POC Glucose 308 H 266 H 327 H Random Glucose Calcium Triglycerides Cholesterol LDL Cholesterol, Calc HDL Cholesterol Cholesterol/HDL Ratio 11/29/17 20:44 Sodium Potassium Chloride Carbon Dioxide Anion Gap BUN Creatinine Estimated GFR POC Glucose 344 H Random Glucose Calcium Triglycerides Cholesterol LDL Cholesterol, Calc HDL Cholesterol Cholesterol/HDL Ratio - Imaging Impressions Carotid Doppler Study 11/29/17 00:00 CONCLUSION: Mild plaquing in the left carotid system with no evidence of a hemodynamically significant lesion. Head CTA 11/29/17 00:00 CONCLUSION: 1. Extensive artifact related to previous coil embolization in the expected region of the left posterior communicating artery. 2. Mild to moderate diffuse stenoses throughout the left posterior cerebral artery. Neck CTA 11/29/17 00:00 CONCLUSION: 1. Patent carotid arteries and vertebral arteries bilaterally. 2. 4 mm nodule involving the left upper lobe. This is nonspecific in its CT appearance. Assessment and Plan - Assessment (1) TIA (transient ischemic attack) Code(s): G45.9 - Transient cerebral ischemic attack, unspecified Status: Acute Plan: the patient has been asymptomatic for any further neurologic changes since admission. Neurology feels that the patient may have had some vertebrobasilar insufficiency and recommends continuing with Plavix and aspirin. Neurology cleared the patient for discharge earlier today, however, we are awaiting pacemaker interrogation and cardiology opinion. The patient was seen later today by cardiology and has been cleared to be discharged home. Pacemaker interrogation did not reveal any significant arrhythmia. (2) Dementia Code(s): F03.90 - Unspecified dementia without behavioral disturbance Status: Chronic Plan: the patient was very anxious to be discharged home. She was becoming more anxious and restless. It was felt that she be would be best served to be discharged home with close outpatient followup. She will continue with current medications for her dementia. (3) Hypertension Code(s): I10 - Essential (primary) hypertension Status: Chronic Plan: blood pressure was variable depending on the patient's level of anxiety. Her blood pressure has been well controlled at home. Her daughter is a physician and the family will monitor the patient's blood pressure closely at home and report readings to the undersigned physician (4) Hypothyroidism Code(s): E03.9 - Hypothyroidism, unspecified Status: Chronic (5) Type 2 diabetes mellitus Code(s): E11.9 - Type 2 diabetes mellitus without complications Status: Chronic Plan: the patient's random glucose was >300 but she had received steroids earlier in the day for premedication prior to the CTA. She was given additional coverage with NovoLog insulin for the elevated glucose level. At the time of discharge, the patient's glucose level was 324. Since the patient was becoming anxious and agitated about having to stay another night, it was felt that she would be best served to be discharged home. She was given an additional dosage of NovoLog insulin prior to discharge and the was given instructions to call the undersigned physician one hour after returning home to report the blood glucose reading. (2) Dementia Qualifiers: Dementia type: vascular dementia (5) Type 2 diabetes mellitus Qualifiers: Diabetes mellitus prison insulin use: without ad terminal makeup operator use Diabetes mellitus complication status: without complication Qualified Code(s): E11.9 - Type 2 diabetes mellitus without complications
[2017-11-29] MEDS: Mirtazapine 15 MG Tablet PO SCH (21:40)
[2017-11-29] MEDS: Carvedilol 12.5 MG Tablet PO SCH (21:42)
--- NOTE | 2017-12-01 07:46 | MG ---
cc: Fernando Monterroso MD DATE: 11/29/2017 #[id number] An 87-year-old woman with double vision. Hyperventilation was not performed. Photic stimulation was performed without significant posterior driving. There is left temporal 6 Hz slowing continuously throughout the recording. Occasionally, sharply-contoured theta wave is seen over the left frontal head region, but no spikes are noted. No ongoing seizure activity is seen. Otherwise, this was an unremarkable electroencephalogram. IMPRESSION: Some left temporal slowing. I believe she does have a history of some damage to that region. Some slightly sharply-contoured waves was seen but no spikes, and no prolonged seizures were noted. Fernando Monterroso MD DJM/js/ll , 07:31 AM , 07:46 AM
--- NOTE | 2017-12-07 11:27 | P.DS ---
Date of admission: 11/28/17 16:01 Primary care physician: Mauricio Munoz MD Attending physician on discharge: Mauricio Munoz Anticipated date of discharge: 11/29/17 Brief History from admission: Patient is an 87-year-old female who presented to the emergency room this morning with a complaint of 2 episodes of double vision. She has a past medical history of DM 2, hypertension, hyperlipidemia, hypothyroidism, PVD and pacemaker placement. Primary care is Dr. Melendez. Reports a DVT approximately 1-2 years ago -family at bedside is uncertain of what medication was given to treat but they do report that she is currently on ASA 81 mg only. Also has a history of cerebral aneurysm with attempted coiling -this caused a rupture of the aneurysm and intracranial hemorrhage which resulted in a very prolonged hospitalization and recovery in 2003. As a result of this she does have some memory problems and a history of seizures although she denies any recent episodes. Currently follows with Dr. Sousa. She tells me that she experienced 2 episodes of double vision this morning that each lasted about 20-30 minutes. Recovery was spontaneous with no residual effects. Denies any similar episodes ever happening in the past. She did not experience any syncope or fall. No chest pain or palpitations. No headache at the time of vision changes although her reports that she has been complaining of sharp intermittent headaches that originate in the back of her head and last about 10-15 minutes before resolving on their own. She denies any weakness, numbness, slurred speech or other vision loss. No paralysis. No incontinence. She is eating and swallowing without difficulty. She additionally denies any chest pain or palpitations. Reports that her pacemaker is regularly interrogated and there has not been any problems. Denies any nausea vomiting or diarrhea. Her appetite is normal and she would like to eat. Has not had any difficulty urinating and bowel movements have been regular. DS: Diagnosis - Discharge Diagnosis (1) TIA (transient ischemic attack) Status: Acute (2) Dementia Status: Chronic (3) Hypertension Status: Chronic (4) Hypothyroidism Status: Chronic (5) Type 2 diabetes mellitus Status: Chronic DS: Summary Hospital Course: the patient was placed in the observation unit. She was placed on telemetry. Initial imaging of the brain did not reveal any significant acute pathology. The patient underwent carotid Doppler studies which were negative. She was allergic to IV contrast, so was premedicated for a CTA of the head and neck. There was extensive artifact from the patient's previous shelter placement for her aneurysm. However, the results revealed extensive plaquing in the left posterior cerebral artery. Neurology saw the patient in consultation and felt that the TIA may have been due to pathology within the posterior circulation. The plaquing in the left posterior cerebral artery was consistent with this impression. The patient was placed on Plavix in addition to aspirin. Cardiology was consult in order to Arrange for a pacemaker interrogation. The pacemaker was interrogated on the second hospital day. Ultimately, the interrogation did not reveal any arrhythmias such as atrial fibrillation. Late on the second hospital day, the patient was seen by cardiology and was cleared for discharge with the Plavix and aspirin prescription regimen. The patient received oral steroids for premedication prior to the CTAs. This caused her glucose levels to increase. When the patient was ready for discharge , her glucose level was 324. She was very anxious to be discharged home and was starting to become agitated. The undersigned physician had an extensive conversation with the patient's daughter who is also a physician. He was felt that the patient would become more agitated if she was forced to stay overnight , which could lead to significant morbidity on the part of the patient. The agreed to assist with monitoring her blood pressure and glucose levels at home closely and reporting any significant elevations to me. Prior to discharge, the patient was given an additional dosage of NovoLog insulin to cover the increased glucose level. I gave instructions to the family to call me one hour after they returned home to report the patient's glucose level. The patient was therefore discharged home in good condition. She was instructed to followup with the undersigned physician in 1-2 weeks. If she had any further neurologic changes, she should report to the emergency department. Her prescription for Plavix was sent electronically to the patient's pharmacy. She will otherwise resume medications as usual. Her discharge medications are outlined on the medication reconciliation sheet. Of note, the family did call one hour after returning home and the patient's random glucose level was 204. This was a marked improvement. They would continue to monitor the patient's glucose levels closely and continue with her regimen of medication as outlined on the discharge orders. - Time Spent with Patient Total time spent providing and/or coordinating discharge services: - Quality: VTE Deep Vein Thrombosis/Pulmonary Embolism Present on Admission: No Results Procedures completed during hospitalization: None - Impressions ITS Impressions Chest X-Ray 11/28/17 00:00 CONCLUSION: Stable exam with no acute cardiopulmonary disease. Head CT 11/28/17 13:00 CONCLUSION: 1. No acute infarct, acute hemorrhage, midline shift or extra-axial fluid collections. 2. 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 3. Encephalomalacia involving the left temporal lobe. 4. Mild central cerebral atrophy. 5. No significant change compared to 08/19/2015. . Carotid Doppler Study 11/29/17 00:00 CONCLUSION: Mild plaquing in the left carotid system with no evidence of a hemodynamically significant lesion. Head CTA 11/29/17 00:00 CONCLUSION: 1. Extensive artifact related to previous coil embolization in the expected region of the left posterior communicating artery. 2. Mild to moderate diffuse stenoses throughout the left posterior cerebral artery. Neck CTA 11/29/17 00:00 CONCLUSION: 1. Patent carotid arteries and vertebral arteries bilaterally. 2. 4 mm nodule involving the left upper lobe. This is nonspecific in its CT appearance. Discharge Plan - Discharge Disposition Patient Disposition: 01 Discharge Home - Discharge Condition Condition: Good - Discharge Order Discharge Orders: Discharge Order (Routine); Ordered 11/29/17 Ordered By: Mauricio Munoz - Discharge Details Anticipated Discharge Date: 11/29/17 - Physicians Team Primary Care Provider: Mauricio Munoz Attending Provider: Mauricio Munoz Other Providers: Fernando Hatch MD ; Fernando Melendez MD
== END 2017-11-29 23:14 | disposition home or self-care (01) ==
LOC: NEDA 12:11 → NEPGCP 12:11 → NEPD 12:11 → NEDA 17:56 → NEPGCP 18:06
PROVIDERS: ADMIT Family Medicine; ATTEND Family Medicine